=== PATIENT | male | born 1935 | race Caucasian/White ===

== ENCOUNTER 2017-07-11 13:17 | Inpatient (IN) | payer MEDICARE, OTHER ==
[2017-07-11 13:36] LABS: #Basophils 0.1 thou/uL (0.0-0.2); #Eosinphils 0.1 thou/uL (0.0-0.7); #Lymphocytes 1.8 thou/uL (1.20-3.40); #Monocytes 0.6 thou/uL (0.11-0.59); #Neutrophils 3.7 thou/uL (1.40-6.50); %Eosinophils 1.4 % (0.0-10.0); %Lymphocytes 29.3 % (21.0-51.0); %Monocytes 9.4 % (0.0-10.0); %Neutrophils 58.9 % (42.0-75.0); Mean Corpuscular HGB CONC 33.1 g/dL (32.0-36.0); Mean Corpuscular Hemoglobin 31.3 pg (27.0-31.0); Mean Corpuscular Volume 94.8 fl (80.0-94.0); Platelet Count 187 thou/uL (130-400); RBC Distribution Width 12.3 % (11.5-14.5); Red Blood Cell (RBC) Count 5.11 mill/uL (4.70-6.10); White Blood Cell (WBC) Count 6.2 thou/uL (4.8-10.8)
[2017-07-11] MEDS ORDERED: Famotidine/PF 20 mg/2ml Vial ONE (13:38)
[2017-07-11] MEDS ORDERED: methylPREDNISolone Sod Succ/PF 125 MG/2 ML VIAL ONE (13:38)
[2017-07-11] MEDS ORDERED: diphenhydrAMINE 50 MG/ML VIAL ONE (13:38)
[2017-07-11 13:54] LABS: INR-International Normal Ratio 1.1; PTT 31.7 SEC (22.9-36.1)
[2017-07-11 13:55] LABS: CKMB 0.8 ng/mL (0-6.6)
[2017-07-11 14:01] LABS: ALT (SGPT) 15 U/L (8-55); AST (SGOT) 31 U/L (5-34); Albumin 4.4 g/dL (3.4-4.8); Alkaline Phosphatase 83 U/L (40-150); Anion Gap 15 mmol/L (10-20); BUN (Urea Nitrogen) 13 mg/dL (8.4-25.7); Bilirubin, Total 0.7 mg/dL (0.2-1.2); CK (CPK) 45 U/L (30-200); Calc. Creatinine Clearance 0 mL/min (70-130); Calcium 10.1 mg/dL (7.8-10.44); Carbon Dioxide 22 mmol/L (23-31); Chloride 103 mmol/L (98-107); Estimated GFR-MDRD 85; Globulin 3.6 g/dL (2.4-3.5); Glucose 118 mg/dL (83-110); Sodium 135 mmol/L (136-145)
[2017-07-11 14:05] LABS: Troponin I Less than 0.010 ng/mL (< 0.028)
[2017-07-11] MEDS ORDERED: niCARdipine 20MG In NaCl 20 MG/200 ML BAG ONE (14:12)
[2017-07-11] MEDS ORDERED: ISOVUE-370 76%-LOCM 1 ML ONE (14:41)
--- NOTE | 2017-07-11 14:47 | CT ---
CT BRAIN NONCONTRAST: DATE: 07-11-17 TIME 1:32 p.m. HISTORY: 82-year-old male with new onset of altered mental status. Confusion. Dr. Hernandez gave this negative STAT stroke alert protocol report by telephone to Dr. Gonzalez of the Emergenc y Department at 1:36 p.m. on 07-11-17. Code CR FINDINGS: There is no midline shift or any other mass effect. There is no evidence of acute intracranial hemor rhage, large cortical infarct, obstructive hydrocephalus, or extraaxial fluid collection. The calvar ium is intact. There is diffuse parenchymal volume loss. There are low attenuation areas in the whi te matter. These are nonspecific, but in a patient of this age, they are probably chronic ischemic w sheree matter changes due to microvascular atherosclerosis. The visualized paranasal sinuses just super ior to the mid axillary sinus level, and the bilateral tympanomastoid cavities are clear. 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 IMPRESSION: 1) No acute intracranial findings. 2) Involutional changes and chronic ischemic white matter changes. 3) Vertebrobasilar dolichoectasia. laine POS: [facility]
--- NOTE | 2017-07-11 15:19 | CT ---
CT ANGIOGRAM OF THE NECK WITH CONTRAST CT ANGIOGRAM OF THE HEAD WITH CONTRAST CT PERFUSION OF THE HEAD WITH CONTRAST: Date: 07-11-17 History: 82-year-old male with altered mental status. Technique: Fast prep given prior to IV contrast injection because of reported history of allergy to iodina trinh contrast. IV injection of 150 ml of Isovue 370. Arterial bolus chasing technique scan performed from top of aortic arch to vertex of head. Coronal and sagittal 3D MIP reconstruction. Multiple axial scans obtained through the head, excluding the base and vertex, post contrast for perf usion. Multiple perfusion parameters performed. FINDINGS: There is no evidence of high grade stenosis identified involving the bilateral subclavian, bilateral common carotid, or bilateral internal carotid arteries; or the left vertebral artery. However, the or igin of the left common carotid and the origin of the brachiocephalic artery, were excluded from the scan. Right vertebral artery is diminutive, but without evidence of focal short segment acquired gene nosis. Intracranially, the right vertebral artery terminates in PICA. There is ectasia and tortuosity of the intracranial left vertebral artery deeply indenting the left side of the brain stem, both edna s and medulla. Basilar artery is also tortuous and ectatic. No evidence of intracranial aneurysm. No high grade short segment focal acquired stenosis identified. Diminutive A1 segment of left anterior c erebral artery. No occlusion of anterior or posterior artery circulation identified. No definite asymmetry or defect is identified involving the images of the cerebral blood volume, cere bral blood flow, or mean transit time, but the cerebrum superior to the level of the lateral ventricl es was not included. IMPRESSION: 1. No evidence of acute cerebral ischemia or infarction. 2. No evidence of arterial occlusion or high grade, acquired short segment stenosis. 3. Diminutive right vertebral artery which terminates in PICA (posterior-inferior cerebellar artery). 4. Diminutive A1 segment of left anterior cerebral artery. 5. Vertebrobasilar dolichoectasia. POS: [facility]
[2017-07-11] MEDS ORDERED: Ondansetron HCl/PF 4 MG/2 ML Vial IVP PRN ×2 (17:35→17:40)
[2017-07-11] MEDS ORDERED: Ondansetron ODT 4 MG TAB SL PRN (17:35)
[2017-07-11] MEDS ORDERED: Acetaminophen 650 MG Suppository PR PRN (17:40)
[2017-07-11] MEDS ORDERED: Dextrose 50% Abboject 50 ML SYRINGE SLOW IVP PRN (17:40)
[2017-07-11] MEDS ORDERED: Dextrose 5% in Water 1,000 ML IV PRN (17:40)
[2017-07-11] MEDS ORDERED: HumaLOG 300 UNITS/3 ML VIAL SC PRN (17:40)
[2017-07-11] MEDS ORDERED: niCARdipine 20MG in NaCl 200 ML BAG IVPB PRN (17:40)
[2017-07-11] MEDS ORDERED: niCARdipine HCl 25 MG in Sodium Chloride 0.9% 250 ML 240 ML IVPB SCH ×2 (17:45→18:00)
[2017-07-11] MEDS: Sodium Chloride 0.9% 1,000 ML IV SCH (17:52)
--- NOTE | 2017-07-11 21:45 | HP ---
DATE OF ADMISSION: 07/11/2017 TIME OF SERVICE: 1500 PRIMARY CARE PHYSICIAN: Dr. Sunil Worley CHIEF COMPLAINT: Confusion. HISTORY OF PRESENT ILLNESS: The patient is unable to give any history. History is taken from his wi fe and from the chart and from discussion with the emergency room physician. Mr. Loja is an 82-year-old white male with history of tongue and throat cancer, prostate cancer, es ophageal cancer, diabetes and hypertension, who was brought to the emergency department via EMS for c onfusion and difficulty speaking. Per his , he was speaking gibberish and started just prior to admission during the presentation here in the emergency department. Workup revealed blood pressure 211/140, CT of the brain was negative, CT perfusion was negative for e vidence of ischemia. The patient was started on the TPA protocol and we were subsequently called for admit. Per Dr. Gonzalez the emergency room physician, he is not having right-sided weakness and better speech. Nurse reports clear speech with actually an increased NIH score as opposed to presentation. The patient does have some receptive aphasia, unable to follow directions. He is unable to answer qu estions effectively. PAST MEDICAL HISTORY: 1. Throat cancer. 2. Tongue cancer. 3. Prostate cancer. 4. Esophageal cancer in remission for more than 10 years. 5. Diabetes mellitus type 2. 6. Hypertension. 7. Unspecified arrhythmia. PAST SURGICAL HISTORY: Includes: 1. Left knee surgery. 2. Hernia repair x4. 3. Prostatectomy. HOME MEDICATIONS: 1. Vitamin D3 of 2000 units daily. 2. Metformin 500 mg p.o. b.i.d. 3. Rabeprazole 20 mg p.o. b.i.d. 4. Pravastatin 20 mg p.o. at bedtime. 5. Slow-Mag 64 mg daily. ALLERGIES: ATENOLOL, CARDIZEM, DOXAZOSIN, DROPERIDOL, IODINE, LISINOPRIL, SULFA, TETANUS VACCINE AND TOXOID. FAMILY HISTORY: Negative for clotting or bleeding disorder, no immune dysfunction, no premature anthony nary disease, no premature strokes. SOCIAL HISTORY: Negative for habits x3. is at the bedside. He lives at home with family. He has multiple children live in different areas. REVIEW OF SYSTEMS: A 10-point review of systems was attempted, the patient is unable to answer quest ions. Answers yes to everything. PHYSICAL EXAMINATION: VITAL SIGNS: Temperature 98.4, pulse 98, blood pressure on arrival was 211/140 with respiratory rate of 18, and satting 93% on room air. Blood pressure at the time of my visit was 152/91 and satting 9 7% on room air. GENERAL: He is awake. He is alert. He is unable to answer orientation questions. Appears to be in no acute distress. HEENT: Normocephalic, atraumatic. His pupils are equal, round, reactive to light bilaterally. Muco us membranes are moist. No visible lesions. No thrush. No uvula deviation. NECK: Supple with no lymphadenopathy, JVD or thyromegaly. He has normal carotid upstrokes. I do no t appreciate bruits. CHEST: Lungs are clear. He has no wheezes, no rales or rhonchi. He has good air movements. Symmet rical chest excursion. CARDIOVASCULAR: Slightly tachycardic and regular. He has had a 2/6 systolic ejection murmur. There are no holosystolic murmurs and no diastolic murmurs. ABDOMEN: Soft. It is nontender, nondistended. No masses, organomegaly. No rebound, rigidity or gu arding. He has good bowel sounds in all 4 quadrants. EXTREMITIES: No cyanosis, clubbing, no edema. He has got 1+ distal pulses in all four extremities. SKIN: Warm, moist, and well perfused. He has no rashes, no lesions. MUSCULOSKELETAL: Normal to inspection. Large joints were uninflamed. There are no palpable effusio ns. NEUROLOGIC: Cranial nerves II through XII appear to be grossly intact. The patient is unable to fol low instructions due to receptive and expressive aphasia. He is moving all 4 extremities symmetrical ly. LABORATORY DATA: Sodium is 135, potassium 5.0, chloride 103, bicarbonate 22, BUN 13, creatinine 0.86 , and glucose 118. Liver functions within normal limits. CBC showed white count 6.2, hemoglobin 16. 0, hematocrit of 48.4, platelet count is 157,000. CK-MB is normal at 0.8. Troponin I is undetectabl e less than 0.010 and INR was 1.1. RADIOGRAPHIC STUDIES: Brain CT as above. No acute changes, but does have some chronic changes. Hea d and neck perfusion study showed no evidence of acute ischemia. ASSESSMENT AND PLAN: 1. Stroke. The patient has expressive and receptive aphasia as well as some right-sided weakness. I do suspect left middle cerebral artery distribution. CT perfusion did not elucidate this. The pat ient is still receiving TPA. We will admit him in the ICU on the TPA protocol and follow. 2. Hypertension, currently very elevated on presentation. He is on a Cardene drip, which will ricki nue at present. We will wean him off. 3. Diabetes mellitus type 2, the patient will be n.p.o., pending Speech Therapy evaluation. We will get q.6 hours or before meals/at bedtime Accu-Cheks with low dose sliding scale. 4. Arrhythmia, will monitor. 5. History of multiple cancers, currently in remission. The patient will be placed on sequential co mpression devices for prophyhlaxis of DVT given that he is on TPA; we will start him on Pepcid 20 mg b.i.d.
[2017-07-11] MEDS: Famotidine/PF 20 mg/2ml Vial SLOW IVP SCH (21:50)
[2017-07-12] MEDS: Sodium Chloride 0.9% 1,000 ML IV SCH (06:29)
[2017-07-12] MEDS: Famotidine/PF 20 mg/2ml Vial SLOW IVP SCH (08:56)
[2017-07-12] MEDS ORDERED: Prevnar 13-Val Conj/PF 0.5 ML SYRINGE IM ONE (09:00)
[2017-07-12 15:30] LABS: #Lymphocytes 1.2 thou/uL (1.20-3.40); #Monocytes 1.1 thou/uL (0.11-0.59); #Neutrophils 7.7 thou/uL (1.40-6.50); %Basophils 0.4 % (0.0-1.0); %Eosinophils 0.1 % (0.0-10.0); %Lymphocytes 11.6 % (21.0-51.0); %Monocytes 10.5 % (0.0-10.0); %Neutrophils 77.4 % (42.0-75.0); Hemoglobin 14.1 g/dL (14.0-18.0); Mean Corpuscular HGB CONC 33.2 g/dL (32.0-36.0); Mean Corpuscular Hemoglobin 31.4 pg (27.0-31.0); Mean Corpuscular Volume 94.7 fl (80.0-94.0); Mean Platelet Volume 7.5 fL (7.4-10.4); Platelet Count 152 thou/uL (130-400); RBC Distribution Width 12.1 % (11.5-14.5); Red Blood Cell (RBC) Count 4.47 mill/uL (4.70-6.10)
[2017-07-12 15:56] LABS: ALT (SGPT) 13 U/L (8-55); AST (SGOT) 16 U/L (5-34); Albumin 3.8 g/dL (3.4-4.8); Alkaline Phosphatase 63 U/L (40-150); Anion Gap 11 mmol/L (10-20); BUN (Urea Nitrogen) 17 mg/dL (8.4-25.7); Bilirubin, Total 0.6 mg/dL (0.2-1.2); Calc. Creatinine Clearance 56 mL/min (70-130); Calcium 9.5 mg/dL (7.8-10.44); Carbon Dioxide 25 mmol/L (23-31); Cardiac Risk 2.9 (Less than 4.5); Chloride 105 mmol/L (98-107); Cholesterol 135 mg/dl (< 200 Desired); Estimated GFR-MDRD Greater than 90; Globulin 2.2 g/dL (2.4-3.5); Glucose 188 mg/dL (83-110); HDL Cholesterol 47 mg/dL (>60 Neg Risk); LDL Cholesterol, Calculated 72 mg/dL; Potassium 4.3 mmol/L (3.5-5.1); Sodium 137 mmol/L (136-145); Triglycerides 80 mg/dL (Less than 150)
--- NOTE | 2017-07-12 16:31 | PDOC.PN ---
- Subjective Encounter Start Date: 07/12/17 Encounter Start Time: 15:30 - Objective Resuscitation Status: Resuscitation Status FULL:Full Resuscitation Vital Signs & Weight: Vital Signs (12 hours) Temp Pulse Pulse Pulse Resp BP BP 07/12/17 12:00 98.7 F 07/12/17 08:03 84 85 134/85 140/86 07/12/17 08:00 97.8 F 86 23 H 07/12/17 06:46 Pulse Ox Pulse Ox Pulse Ox 07/12/17 12:00 99 07/12/17 08:03 97 94 L 07/12/17 08:00 99 07/12/17 06:46 96 Weight Admit Weight 125 lb 7.088 oz Weight 125 lb 7.088 oz Most Recent Monitor Data Heart Rate from ECG 76 NIBP 154/71 NIBP BP-Mean 137 Respiration from ECG 23 SpO2 98 I&O: 07/11/17 07/12/17 07/13/17 06:59 06:59 06:59 Intake Total 1236 360 Output Total 1000 375 Balance 236 -15 Result Diagrams: 07/12/17 15:23 07/12/17 15:23 Dx/Plan - Plan * .
[2017-07-12 18:13] VITALS: BMI 17.9
[2017-07-12] MEDS: Famotidine 20 MG TAB PO SCH (20:37)
--- NOTE | 2017-07-12 22:18 | CON ---
DATE OF CONSULTATION: 07/12/2017 REFERRING PHYSICIAN: Jay Lynn MD REASON FOR CONSULTATION: Aphasia, status post IV tPA. HISTORY OF PRESENT ILLNESS: Mr. Loja is a pleasant 82-year-old male who has been consult ed for evaluation of aphasia and post IV tPA. History was obtained from the patient's medical chart as the patient is not able to provide any history. Apparently, the patient had presented on yesterda y with a sudden onset of vision changes, followed by dysarthria, aphasia, and confusion. On arrival, his blood pressure was noted to be 211/140. He had a CT of the head done, which was negative. He h ad a CT perfusion scan done, which showed no evidence of ischemia. He had a CT angiogram of the head and neck done, which showed no evidence of intracranial or extracranial vascular abnormality. He wa s given IV tPA as he was in the window for tPA, after which his symptoms quickly resolved. Currently , the patient reports of having no headache, vision changes, numbness, tingling, weakness, dysarthria , or dysphagia. PAST MEDICAL HISTORY: Significant for throat cancer, tongue cancer, prostate cancer, esophageal canc er, hypertension, diabetes, and unspecified arrhythmia. PAST SURGICAL HISTORY: Significant for left knee surgery, hernia repair, and prostatectomy. CURRENT MEDICATIONS: Please review MAR. ALLERGIES: Include ATENOLOL, CARDIZEM, DOXAZOSIN, DROPERIDOL, IODINE, LISINOPRIL, SULFA DRUGS, TETAN US VACCINE AND TOXOID. FAMILY HISTORY: Noncontributory. SOCIAL HISTORY: Denies smoking, alcohol use, or illicit drug use. He is . REVIEW OF SYSTEMS: As mentioned in the HPI, otherwise negative. PHYSICAL EXAMINATION: VITAL SIGNS: Blood pressure of 143/78, pulse of 79, temperature of 99.2, respirations of 11, and O2 sats of 100% on room air. GENERAL: Well-developed, well-nourished male in no apparent distress. RESPIRATORY: Clear to auscultation bilaterally. CARDIOVASCULAR: Regular rate and rhythm. NEUROLOGIC: Mental status: The patient is awake, alert, oriented x3. Speech and language: Fluent speech. Cranial nerves: Pupils are 3 mm and reactive. Visual reeder are intact. Extraocular muscl es are intact. No nystagmus noted. Face is symmetric. Tongue and uvula are midline. Motor exam sh owed normal tone and bulk with 5/5 strength in both upper and lower extremities. Sensory: Sensation is intact and symmetric. Deep tendon reflexes are 2+ reflexes in both upper and lower extremities. Babinski: Plantar responses flexion bilaterally. LABORATORY DATA: Labs are reviewed, which included CBC, coagulation panel, CMP, lipid profile which is significant for glucose of 149; otherwise unremarkable. IMAGING STUDIES: CT head without contrast was reviewed, which showed no acute intracranial abnormali ty. CT angiogram of the head and neck and CT perfusion scan were reviewed, which showed no abnormali ty. IMPRESSION: 1. Aphasia and dysarthria, status post IV tPA, now improved. 2. Malignant hypertension. ASSESSMENT AND PLAN: Mr. Loja is a pleasant 82-year-old male, who presented with acute o nset of dysarthria, aphasia, and confusion. He is now status post IV tPA. Symptoms have improved po st-TPA. His blood pressure was noted to be significantly elevated on arrival. This is the most like ly cause for his symptoms. At this time, I would recommend obtaining MRI brain without contrast and echocardiogram. I would recommend starting him on aspirin 325 mg daily for secondary stroke preventi on. Continue PT, OT, speech therapy. Continue current medical management. Thank you for consultation.
[2017-07-13] MEDS ORDERED: Aspirin 325 mg Enteric Coated Tablet PO SCH (09:00)
[2017-07-13] MEDS ORDERED: metFORMIN XR 500 MG TAB PO SCH (09:00)
[2017-07-13] MEDS ORDERED: Cyanocobalamin (Vitamin B-12) 1,000 MCG TAB PO SCH (09:00)
[2017-07-13] MEDS ORDERED: Magnesium Chloride 64 MG TAB PO SCH (09:00)
[2017-07-13] MEDS: Famotidine 20 MG TAB PO SCH (09:42)
--- NOTE | 2017-07-13 12:17 | MRI ---
MRI BRAIN WITHOUT CONTRAST: Date: 07/13/17 HISTORY: New onset altered mental status, confusion. FINDINGS: Correlation is made with CT brain of 07/11/17. No restricted diffusion is seen. No evidence of infarct, hemorrhage, midline shift, or abnormal extra -axial fluid collections are seen. There are multiple foci of T2 prolongation in the periventricular white matter consistent with chronic small vessel ischemic disease. The ventricular size is appropria te and the basilar cisterns are patent. Vertebrobasilar dolichoectasia is again seen. There is mucosa l disease in the paranasal sinuses. IMPRESSION: 1. No evidence of acute intracranial process. 2. Chronic small vessel ischemic disease. 3. Vertebrobasilar dolichoectasia. POS: [facility]
[2017-07-13] MEDS ORDERED: hydrALAZINE 20 MG/ML VIAL SLOW IVP PRN (12:26)
[2017-07-13] MEDS ORDERED: Amlodipine 10 MG TAB PO SCH (12:30)
[2017-07-13 15:25] VITALS: BP 156/84
[2017-07-13 16:50] VITALS: TEMP 98.7
[2017-07-13] MEDS ORDERED: Atorvastatin Calcium 40 MG TAB PO SCH (21:00)
--- NOTE | 2017-07-13 21:55 | DIS ---
DATE OF ADMISSION: 07/11/2017 DATE OF DISCHARGE: 07/13/2017 DISCHARGE DIAGNOSES: 1. 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 2. Status post TPA administration. 3. Hypertension. 4. Benign prostatic hypertrophy. 5. Hyperlipidemia. 6. Diabetes mellitus type 2, non-insulin dependent. CONSULTATIONS: Neurology, Dr. Svetlana Arevalo. PROCEDURES: None. HISTORY: Mr. Loja is an 82-year-old male who presented to the emergency department early afternoon of 07/11/2017 with acute onset of dysphagia. He is unable to make coherent statements. A CT of the brain in the emergency department was negative, he was in the window and felt to be a good candidate for TPA and so the protocol was initiated. Subsequently, called for admission. HOSPITAL COURSE: The patient was seen and examined by me in the Emergency Department, the patient was neurologically intact except for Wernicke's aphasia. He was placed in the ICU, all anticoagulants were held, antiplatelet drugs were held, and blood pressure was controlled with a Cardene drip initially. Overnight 07/11/2017 to 07/12/2017, the patient's mental status, speech and neurologic status completely back to normal. He underwent a 2D echocardiogram. He was seen by Dr. Arevalo on 07/12/2017 who recommended MRI and echocardiogram. He recommended aspirin. Review of the chart and the medicines with the patient and his family, really does take a migraine remedy daily at nighttime and has 250 mg of aspirin before his symptoms stroke. We will place him on Lipitor 40 instead of his normal Pravachol 20. We will increase his aspirin to 325 mg p.o. q.a.m. of aspirin alone, and he can continue to use his migraine medicine if wanted. Overnight 07/12/2017 to 07/13/2017, he remained stable. MRI showed no acute infarct, his echocardiogram showed EF 50%-55% with some mild valvular disease, but nothing significant, and blood pressure remained elevated. He was placed on Norvasc 10 mg daily with good control of his blood pressure. He was stable for discharge with outpatient followup. PHYSICAL EXAMINATION: The patient was seen and examined on the day of discharge. Discharge plan and disposition was discussed with the patient, his , and has tolerated the base at the bedside. DISCHARGE MEDICATIONS: 1. Slow-Mag 64 mg p.o. b.i.d. 2. Cholecalciferol 2000 units daily with cyanocobalamin 225 mcg p.o. daily. 3. Metformin 500 mg p.o. b.i.d. 4. Aciphex 20 mg p.o. b.i.d. 5. Lipitor 40 mg p.o. at bedtime. 6. Aspirin 325 mg daily. 7. Norvasc 10 mg daily. FOLLOWUP APPOINTMENTS: 1. Primary care physician, Dr. Sunil Worley within a week. 2. Dr. Svetlana Arevalo with Neurology in 2-3 weeks. DISCHARGE ACTIVITY: As tolerated. DISCHARGE DIET: Heart healthy diabetic diet recommended. DISCHARGE CONDITION: Stable. DISPOSITION: Will be discharged home via private vehicle. EDANN
== END 2017-07-13 17:01 | disposition home or self-care (01) | DRG 62 ==
LOC: ERS 13:17 → ERHOLD 15:07 → CCU 17:13
PROVIDERS: ADMIT Internal Medicine Infectious Disease; ATTEND Internal Medicine Infectious Disease
DX: I63.9 Cerebral infarction, unspecified (principal); G81.91 Hemiplegia, unspecified affecting right dominant side; E11.9 Type 2 diabetes mellitus without complications; R47.01 Aphasia; Z92.82 Status post administration of tPA (rtPA) in a different facility within the last 24 hours prior to admission to current facility; I10 Essential (primary) hypertension; H53.47 Heteronymous bilateral field defects; R29.810 Facial weakness; R47.1 Dysarthria and anarthria; Z85.01 Personal history of malignant neoplasm of esophagus; Z85.46 Personal history of malignant neoplasm of prostate; Z85.810 Personal history of malignant neoplasm of tongue; N40.0 Benign prostatic hyperplasia without lower urinary tract symptoms
CPT/HCPCS: 0042T; 36415; 36416; 70450; 70496; 70498; 70551; 80053; 80061; 82550; 82553; 84484; 85025; 85610; 85730; 93005; 93306; 96365; 96366; 96375; A4216; G8978-GP-CN; G8979-GP-CJ; G8987-GO-CI; G8988-GO-CI; G8989-GO-CI; G8996-GN-CI; G8997-GN-CH; J1200; J2405; J2930; J2997; J7050; S0028

== ENCOUNTER 2017-08-27 14:00 | Outpatient (CLI) | payer MEDICARE, OTHER | END 2017-08-27 14:01 | disposition home or self-care (01) | LOC: BICULT 14:00 | PROVIDERS: ATTEND Family Medicine | DX: E07.9 Disorder of thyroid, unspecified (principal) | CPT/HCPCS: 76536 ==

== ENCOUNTER 2017-09-15 11:00 | Day surgery (SDC) | payer MEDICARE, OTHER ==
[2017-09-14 10:43] VITALS: BMI 18.3
--- NOTE | 2017-09-15 14:39 | OP ---
PREOPERATIVE DIAGNOSIS: Epigastric pain. PROCEDURE: After informed consent was obtained, patient was placed in the left lateral decubitus pos ition. Anesthesia was administered per the Anesthesia Department. Forward-viewing endoscope was ins erted into the esophagus under direct visualization with ease and passed to the second portion of the duodenum with ease. Second portion of the duodenum and duodenal bulb were normal. The pylorus, ant rum, body, fundus, and cardia were normal except for erythema in the proximal stomach. Biopsies were taken. The esophagus was normal throughout. A 54-Kiswahili Owen dilator was passed with moderate r esistance. Reinsertion of the endoscope showed post-dilatation changes at the upper esophagus at ameya roximately 20 cm. ASSESSMENT: 1. Esophageal stricture at 20 cm -- status post Owen dilatation. 2. Gastric body nonerosive gastritis -- status post biopsy. 3. Otherwise normal esophagogastroduodenoscopy. RECOMMENDATIONS: 1. Consider switch from Aciphex to omeprazole. 2. Follow up with me in 1 month's time.
[2017-09-15] MEDS ORDERED: Lidocaine 1% PF 5 ML VIAL ONE (15:01)
[2017-09-15] MEDS ORDERED: PROPOFOL 200 MG/20 ML VIAL ONE (15:01)
== END 2017-09-15 13:50 | disposition home or self-care (01) ==
LOC: SDC 11:00
PROVIDERS: ATTEND Internal Medicine Gastroenterology
PROC: 0DB68ZX Excision of Stomach, Via Natural or Artificial Opening Endoscopic, Diagnostic (ICD-10-PCS; principal; 2017-09-15)
PROC: 0D758ZZ Dilation of Esophagus, Via Natural or Artificial Opening Endoscopic (ICD-10-PCS; 2017-09-15)
DX: K22.2 Esophageal obstruction (principal); K29.70 Gastritis, unspecified, without bleeding; G47.33 Obstructive sleep apnea (adult) (pediatric); I10 Essential (primary) hypertension; E11.9 Type 2 diabetes mellitus without complications; K21.9 Gastro-esophageal reflux disease without esophagitis; K59.00 Constipation, unspecified; M19.90 Unspecified osteoarthritis, unspecified site; Z87.891 Personal history of nicotine dependence; Z79.82 Long term (current) use of aspirin; Z79.84 Long term (current) use of oral hypoglycemic drugs; Z79.899 Other long term (current) drug therapy; Z88.2 Allergy status to sulfonamides; Z88.6 Allergy status to analgesic agent; Z88.8 Allergy status to other drugs, medicaments and biological substances; Z91.041 Radiographic dye allergy status
CPT/HCPCS: 88305; 88312; J2001; J2704

== ENCOUNTER 2017-09-16 10:15 | Day surgery (SDC) | payer MEDICARE, OTHER ==
[2017-09-15 12:14] VITALS: BMI 18.2
[2017-09-16] MEDS ORDERED: Sodium Bicarbonate 2.5 MEQ/5 ML VIAL ONE (11:15)
[2017-09-16] MEDS ORDERED: Lidocaine 1% MPF 2 ML VIAL ONE (11:15)
[2017-09-16 11:43] VITALS: BP 133/84; TEMP 97.9
--- NOTE | 2017-09-16 13:00 | ULT ---
ULTRASOUND GUIDED FNA OF THE RIGHT THYROID NODULE: INDICATION: History of throat irradiation and family history of thyroid malignancy. COMPARISON: Prior thyroid ultrasound dated 08/27/17 from [facility] [place]. TECHNIQUE: Informed consent was obtained. Timeout was performed. Preprocedural ultrasound redemonstrated the s uspicious nodule within the inferior pole of the right thyroid gland. A site overlying this region w as prepped and draped in the usual sterile fashion. Buffered 1% Lidocaine was administered to the ov erlying subcutaneous tissues. Under ultrasound guidance, 4 separate FNAs were obtained of the lesion . Postprocedure images demonstrate no significant intraparenchymal or periparenchymal hematoma. IMPRESSION: Successful ultrasound-guided fine needle aspirate of a right inferior pole thyroid nodule. POS: [facility]
== END 2017-09-16 11:55 | disposition home or self-care (01) ==
LOC: ULT 10:15
PROVIDERS: ATTEND Internal Medicine Endocrinology, Diabetes & Metabolism
PROC: 0GBH3ZX Excision of Right Thyroid Gland Lobe, Percutaneous Approach, Diagnostic (ICD-10-PCS; principal; 2017-09-16)
DX: E04.1 Nontoxic single thyroid nodule (principal); Z91.041 Radiographic dye allergy status; Z92.3 Personal history of irradiation; Z80.8 Family history of malignant neoplasm of other organs or systems
CPT/HCPCS: 10022; 76942; 88173; 88305

== ENCOUNTER 2021-10-03 10:12 | Outpatient (CLI) | payer MEDICARE, OTHER | END 2021-10-03 10:13 | disposition home or self-care (01) | LOC: SCSRAD 10:12 | PROVIDERS: ATTEND Family Medicine | DX: M25.552 Pain in left hip (principal); M16.12 Unilateral primary osteoarthritis, left hip ==

== ENCOUNTER 2022-07-20 11:23 | Inpatient (IN) | payer MEDICARE, OTHER ==
[2022-07-20] MEDS ORDERED: niCARdipine 25 MG/10 ML SDV ONE ×2 (11:37→13:16)
[2022-07-20] MEDS ORDERED: niCARdipine 25 MG in Sodium Chloride 0.9% 250 ML 250 ML IVPB PRN (13:00)
[2022-07-20] MEDS ORDERED: Mag-Al 1200 mg/1200 mg/30 ML UDCUP PO PRN (13:00)
[2022-07-20] MEDS ORDERED: Diazepam 5 MG TAB PO PRN (14:13)
[2022-07-20 16:43] LABS: #Eosinphils 0.1 thou/uL (0.0-0.7); #Lymphocytes 1.4 thou/uL (1.20-3.40); #Monocytes 0.8 thou/uL (0.11-0.59); #Neutrophils 8.1 thou/uL (1.40-6.50); %Basophils 0.2 % (0.0-1.0); %Eosinophils 1.2 % (0.0-10.0); %Lymphocytes 13.7 % (21.0-51.0); %Monocytes 7.6 % (0.0-10.0); %Neutrophils 77.4 % (42.0-75.0); Hemoglobin 16.2 g/dL (14.0-18.0); Mean Corpuscular HGB CONC 32.9 g/dL (32.0-36.0); Mean Corpuscular Hemoglobin 32.5 pg (27.0-31.0); Mean Corpuscular Volume 98.9 fl (78.0-98.0); Mean Platelet Volume 7.8 fL (7.4-10.4); Platelet Count 159 10x3/uL (130-400); RBC Distribution Width 12.1 % (11.5-14.5); Red Blood Cell (RBC) Count 4.97 mill/uL (4.70-6.10); White Blood Cell (WBC) Count 10.5 10x3/uL (4.8-10.8)
[2022-07-20 16:59] LABS: INR-International Normal Ratio 1.1; PTT 32.9 sec (22.9-36.1); Prothrombin Time 14.8 sec (12.0-14.7)
[2022-07-20 17:10] LABS: ALT (SGPT) 11 U/L (8-55); AST (SGOT) 19 U/L (5-34); Albumin 3.9 g/dL (3.4-4.8); Alkaline Phosphatase 127 U/L (40-110); Anion Gap 16 mmol/L (10-20); BUN (Urea Nitrogen) 13 mg/dL (8.4-25.7); Bilirubin, Total 0.9 mg/dL (0.2-1.2); Calc. Creatinine Clearance 0 mL/min (70-130); Calcium 9.3 mg/dL (7.8-10.44); Carbon Dioxide 24 mmol/L (23-31); Chloride 105 mmol/L (98-107); Estimated GFR 87; Globulin 2.2 g/dL (2.4-3.5); Glucose 145 mg/dL (83-110); Potassium 3.6 mmol/L (3.5-5.1); Protein, Total 6.1 g/dL (5.8-8.1); Sodium 141 mmol/L (136-145)
[2022-07-20 18:35] LABS: SARS-CoV-2 NAA Rapid Test Not Detected (NotDetected)
[2022-07-20] MEDS: Famotidine/PF 20 mg/2ml Vial SLOW IVP SCH (20:44)
[2022-07-20] MEDS ORDERED: Metoprolol Tartrate 5 MG/5 ML VIAL IVP SCH (20:45)
[2022-07-20] MEDS ORDERED: Potassium Chloride 20 MEQ in Premix Bag 1 BAG IVPB SCH (21:00)
[2022-07-20] MEDS: Diltiazem 125 MG in Sodium Chloride 0.9% 100 ML IVPB SCH (21:47)
[2022-07-20 22:49] LABS: Magnesium 1.7 mg/dL (1.6-2.6)
[2022-07-21] MEDS ORDERED: Magnesium 2 GM/50 ML(in water) 2 GM in Premix Bag 1 BAG IVPB SCH (04:00)
[2022-07-21 07:10] LABS: Anion Gap 17 mmol/L (10-20); BUN (Urea Nitrogen) 17 mg/dL (8.4-25.7); Calc. Creatinine Clearance 53 mL/min (70-130); Carbon Dioxide 20 mmol/L (23-31); Cardiac Risk 2.6 (Less than 4.5); Chloride 104 mmol/L (98-107); Cholesterol 125 mg/dl (< 200 Desired); Estimated GFR 85; Glucose 157 mg/dL (83-110); HDL Cholesterol 48 mg/dL (>60 Neg Risk); LDL Cholesterol, Calculated 67 mg/dL; Magnesium 2.5 mg/dL (1.6-2.6); Potassium 4.3 mmol/L (3.5-5.1); Sodium 137 mmol/L (136-145); Triglycerides 49 mg/dL (Less than 150)
[2022-07-21 07:22] LABS: Hemoglobin 17.1 g/dL (14.0-18.0); Mean Corpuscular Hemoglobin 32.9 pg (27.0-31.0); White Blood Cell (WBC) Count 16.9 10x3/uL (4.8-10.8)
[2022-07-21 07:47] LABS: Band 35 % (5-11); Lymphocytes 5 % (21-51); MDiff Complete? YES; Mean Corpuscular HGB CONC 32.7 g/dL (32.0-36.0); Mean Platelet Volume 8.4 fL (7.4-10.4); Neutrophil 53 % (42-75); Platelet Count 112 10x3/uL (130-400); Platelet Morphology Comment Appears Decreased; Polychromasia SLIGHT = 2-3 cells (100X) (0-2/hpf); RBC Distribution Width 12.3 % (11.5-14.5); Reactive Lymphocytes 7 % (0-10); Vacuoles SLIGHT
[2022-07-21] MEDS: Famotidine/PF 20 mg/2ml Vial SLOW IVP SCH ×2 (10:44→21:05)
[2022-07-21] MEDS: Amlodipine 5 MG TAB PO SCH ×2 (10:59→13:14)
[2022-07-21] MEDS: Zinc Sulfate 220 MG CAP PO SCH ×2 (10:59→13:15)
[2022-07-21] MEDS: Atorvastatin Calcium 40 MG TAB PO SCH ×2 (10:59→13:14)
[2022-07-21] MEDS: Diltiazem 125 MG in Sodium Chloride 0.9% 100 ML IVPB SCH (13:13)
[2022-07-21] MEDS: Metoprolol Tartrate 25 MG TAB PO SCH (21:05)
[2022-07-21] MEDS ORDERED: Diazepam 5 MG TAB PO PRN (22:25)
[2022-07-21] MEDS: Melatonin 3 MG TAB PO PRN (22:39)
[2022-07-22 06:21] LABS: #Basophils 0.1 thou/uL (0.0-0.2); #Lymphocytes 1.6 thou/uL (1.20-3.40); #Neutrophils 11.4 thou/uL (1.40-6.50); %Basophils 0.4 % (0.0-1.0); %Eosinophils 0.2 % (0.0-10.0); %Lymphocytes 11.1 % (21.0-51.0); %Monocytes 6.8 % (0.0-10.0); %Neutrophils 81.6 % (42.0-75.0); Hemoglobin 14.7 g/dL (14.0-18.0); Mean Corpuscular HGB CONC 32.8 g/dL (32.0-36.0); Mean Corpuscular Hemoglobin 32.5 pg (27.0-31.0); Mean Platelet Volume 8.4 fL (7.4-10.4); Platelet Count 131 10x3/uL (130-400); RBC Distribution Width 12.5 % (11.5-14.5); Red Blood Cell (RBC) Count 4.51 mill/uL (4.70-6.10)
[2022-07-22 06:45] LABS: Anion Gap 11 mmol/L (10-20); BUN (Urea Nitrogen) 23 mg/dL (8.4-25.7); Calc. Creatinine Clearance 51 mL/min (70-130); Calcium 9.4 mg/dL (7.8-10.44); Carbon Dioxide 29 mmol/L (23-31); Chloride 103 mmol/L (98-107); Estimated GFR 84; Glucose 120 mg/dL (83-110); Magnesium 2.3 mg/dL (1.6-2.6); Sodium 139 mmol/L (136-145)
[2022-07-22] MEDS: Labetalol HCl 100 MG/20 ML VIAL SLOW IVP PRN ×2 (08:16→10:42)
[2022-07-22] MEDS: Zinc Sulfate 220 MG CAP PO SCH (08:27)
[2022-07-22] MEDS: Metoprolol Tartrate 25 MG TAB PO SCH (08:27)
[2022-07-22] MEDS: Atorvastatin Calcium 40 MG TAB PO SCH (08:27)
[2022-07-22] MEDS ORDERED: Amlodipine 10 MG TAB PO SCH (09:00)
[2022-07-22] MEDS: Famotidine/PF 20 mg/2ml Vial SLOW IVP SCH ×2 (10:29→22:38)
[2022-07-22] MEDS ORDERED: Bisacodyl 5 MG TAB PO PRN (12:42)
[2022-07-22] MEDS ORDERED: Senokot 8.6 MG TAB PO PRN (12:42)
[2022-07-22] MEDS ORDERED: cefTRIAXone\\ROCEPHIN 2 GM in Sodium Chloride 0.9% 100 ML IVPB SCH (17:15)
[2022-07-22] MEDS: Metoprolol Tartrate 25 MG TAB PER TUBE SCH (22:38)
[2022-07-23] MEDS: hydrALAZINE 20 MG/ML VIAL SLOW IVP PRN (01:31)
[2022-07-23 06:37] LABS: Magnesium 2.1 mg/dL (1.6-2.6)
[2022-07-23] MEDS: Amlodipine 10 MG TAB PER TUBE SCH (10:08)
[2022-07-23] MEDS: Famotidine/PF 20 mg/2ml Vial SLOW IVP SCH ×2 (10:08→22:35)
[2022-07-23] MEDS: Metoprolol Tartrate 25 MG TAB PER TUBE SCH ×2 (10:09→22:36)
[2022-07-23] MEDS: Atorvastatin Calcium 40 MG TAB PO SCH (10:09)
[2022-07-23] MEDS: Zinc Sulfate 220 MG CAP PO SCH (10:17)
[2022-07-23] MEDS ORDERED: Dextrose 5% in Water 1,000 ML IV PRN (12:08)
[2022-07-23] MEDS ORDERED: Dextrose 50% Abboject 50 ML SYRINGE SLOW IVP PRN (12:08)
[2022-07-23] MEDS: cefTRIAXone\\ROCEPHIN 1 GM in Sodium Chloride 0.9% 100 ML IVPB SCH (17:22)
[2022-07-23] MEDS: HumaLOG 300 UNITS/3 ML VIAL SC PRN (18:23)
[2022-07-23] MEDS ORDERED: Baclofen 10 MG TAB PO SCH (21:15)
[2022-07-23] MEDS ORDERED: FLU VACC QS2022-23(65YR UP)/PF 240 MCG/0.7 ML SYRINGE IM ONE (21:45)
[2022-07-23] MEDS: VYZULTA 0.024% EA EYE SCH (23:08)
[2022-07-24 05:40] LABS: #Monocytes 0.6 thou/uL (0.11-0.59); #Neutrophils 7.1 thou/uL (1.40-6.50); %Basophils 0.1 % (0.0-1.0); %Eosinophils 0.1 % (0.0-10.0); %Lymphocytes 11.8 % (21.0-51.0); %Monocytes 7.1 % (0.0-10.0); %Neutrophils 80.8 % (42.0-75.0); Hemoglobin 14.8 g/dL (14.0-18.0); Mean Corpuscular HGB CONC 33.2 g/dL (32.0-36.0); Mean Corpuscular Hemoglobin 32.8 pg (27.0-31.0); Mean Corpuscular Volume 98.7 fl (78.0-98.0); Mean Platelet Volume 8.1 fL (7.4-10.4); Platelet Count 132 10x3/uL (130-400); RBC Distribution Width 12.3 % (11.5-14.5); White Blood Cell (WBC) Count 8.7 10x3/uL (4.8-10.8)
[2022-07-24 05:49] LABS: Hemoglobin A1c 6.1 % (4.0-6.0)
[2022-07-24 06:05] LABS: Anion Gap 10 mmol/L (10-20); BUN (Urea Nitrogen) 24 mg/dL (8.4-25.7); Calc. Creatinine Clearance 60 mL/min (70-130); Calcium 9.2 mg/dL (7.8-10.44); Carbon Dioxide 28 mmol/L (23-31); Chloride 108 mmol/L (98-107); Estimated GFR 88; Glucose 161 mg/dL (83-110); Magnesium 2.1 mg/dL (1.6-2.6); Potassium 3.4 mmol/L (3.5-5.1); Sodium 143 mmol/L (136-145)
[2022-07-24] MEDS: HumaLOG 300 UNITS/3 ML VIAL SC PRN ×2 (06:34→13:56)
[2022-07-24] MEDS: Famotidine/PF 20 mg/2ml Vial SLOW IVP SCH ×2 (09:18→20:47)
[2022-07-24] MEDS: Zinc Sulfate 220 MG CAP PO SCH (09:18)
[2022-07-24] MEDS: Amlodipine 10 MG TAB PER TUBE SCH (09:19)
[2022-07-24] MEDS: Atorvastatin Calcium 40 MG TAB PO SCH (09:19)
[2022-07-24] MEDS: Metoprolol Tartrate 25 MG TAB PER TUBE SCH (09:19)
[2022-07-24] MEDS: Potassium Chloride 20 MEQ in Premix Bag 1 BAG IVPB SCH ×2 (11:01→13:37)
[2022-07-24] MEDS: cefTRIAXone\\ROCEPHIN 1 GM in Sodium Chloride 0.9% 100 ML IVPB SCH (18:30)
[2022-07-24] MEDS: VYZULTA 0.024% EA EYE SCH (20:47)
[2022-07-24] MEDS ORDERED: Metoprolol Tartrate 50 MG TAB PO SCH (21:00)
[2022-07-25] MEDS: Labetalol HCl 100 MG/20 ML VIAL SLOW IVP PRN (00:37)
[2022-07-25] MEDS: hydrALAZINE 20 MG/ML VIAL SLOW IVP PRN ×2 (00:41→04:24)
[2022-07-25 06:08] LABS: Anion Gap 11 mmol/L (10-20); BUN (Urea Nitrogen) 22 mg/dL (8.4-25.7); Calc. Creatinine Clearance 60 mL/min (70-130); Calcium 9.5 mg/dL (7.8-10.44); Carbon Dioxide 27 mmol/L (23-31); Chloride 108 mmol/L (98-107); Estimated GFR 88; Glucose 215 mg/dL (83-110); Potassium 3.7 mmol/L (3.5-5.1); Sodium 142 mmol/L (136-145)
[2022-07-25 06:11] LABS: Band 25 % (5-11); Eosinophils 1 % (0-10); Hemoglobin 15.4 g/dL (14.0-18.0); Lymphocytes 3 % (21-51); MDiff Complete? YES; Mean Corpuscular HGB CONC 32.8 g/dL (32.0-36.0); Mean Corpuscular Hemoglobin 32.4 pg (27.0-31.0); Mean Corpuscular Volume 98.8 fl (78.0-98.0); Mean Platelet Volume 8.2 fL (7.4-10.4); Monocytes 5 % (0-10); Neutrophil 66 % (42-75); Platelet Count 138 10x3/uL (130-400); Platelet Morphology Comment Appears Adequate; RBC Distribution Width 12.4 % (11.5-14.5); RBC Morphology Normal; Red Blood Cell (RBC) Count 4.76 mill/uL (4.70-6.10); White Blood Cell (WBC) Count 11.3 10x3/uL (4.8-10.8)
[2022-07-25] MEDS: HumaLOG 300 UNITS/3 ML VIAL SC PRN ×3 (07:30→18:09)
[2022-07-25] MEDS: Famotidine/PF 20 mg/2ml Vial SLOW IVP SCH ×2 (10:29→20:57)
[2022-07-25] MEDS: Zinc Sulfate 220 MG CAP PO SCH (10:29)
[2022-07-25] MEDS: Atorvastatin Calcium 40 MG TAB PO SCH (10:30)
[2022-07-25] MEDS: Amlodipine 10 MG TAB PER TUBE SCH (10:30)
[2022-07-25] MEDS: Metoprolol Tartrate 50 MG TAB PO SCH ×2 (10:30→20:57)
[2022-07-25] MEDS: Lisinopril 10 MG TAB PER TUBE SCH ×2 (10:30→20:57)
[2022-07-25] MEDS ORDERED: Potassium Chloride 20 MEQ in Premix Bag 1 BAG IVPB SCH (12:30)
[2022-07-25] MEDS: cefTRIAXone\\ROCEPHIN 1 GM in Sodium Chloride 0.9% 100 ML IVPB SCH (17:35)
[2022-07-25] MEDS: VYZULTA 0.024% EA EYE SCH (20:57)
[2022-07-25] MEDS ORDERED: Polyethylene Glycol 3350 17 GM Packet PO SCH (21:00)
[2022-07-26] MEDS: hydrALAZINE 20 MG/ML VIAL SLOW IVP PRN (04:24)
[2022-07-26] MEDS: HumaLOG 300 UNITS/3 ML VIAL SC PRN ×2 (05:56→13:00)
[2022-07-26 05:59] LABS: Anion Gap 12 mmol/L (10-20); BUN (Urea Nitrogen) 23 mg/dL (8.4-25.7); Calc. Creatinine Clearance 62 mL/min (70-130); Calcium 9.8 mg/dL (7.8-10.44); Carbon Dioxide 28 mmol/L (23-31); Chloride 108 mmol/L (98-107); Estimated GFR 89; Glucose 198 mg/dL (83-110); Magnesium 2.1 mg/dL (1.6-2.6); Sodium 144 mmol/L (136-145)
[2022-07-26 06:05] LABS: Band 1 % (5-11); Eosinophils 3 % (0-10); Hemoglobin 15.6 g/dL (14.0-18.0); Lymphocytes 12 % (21-51); MDiff Complete? YES; Macrocytosis MODERATE=16-30 cells (100X) (0-5/hpf); Mean Corpuscular HGB CONC 32.5 g/dL (32.0-36.0); Mean Corpuscular Hemoglobin 32.5 pg (27.0-31.0); Mean Platelet Volume 7.9 fL (7.4-10.4); Metamyelocyte 1 % (0-0); Monocytes 10 % (0-10); Neutrophil 73 % (42-75); Ovalocytes SLIGHT = 2-5 cells (100X) (0-1/hpf); Platelet Count 161 10x3/uL (130-400); Platelet Morphology Comment Appears Adequate; RBC Distribution Width 12.4 % (11.5-14.5); Red Blood Cell (RBC) Count 4.81 mill/uL (4.70-6.10); White Blood Cell (WBC) Count 12.6 10x3/uL (4.8-10.8)
[2022-07-26] MEDS: Famotidine/PF 20 mg/2ml Vial SLOW IVP SCH ×2 (09:59→21:18)
[2022-07-26] MEDS: Atorvastatin Calcium 40 MG TAB PO SCH (09:59)
[2022-07-26] MEDS: Lisinopril 10 MG TAB PER TUBE SCH (09:59)
[2022-07-26] MEDS: Polyethylene Glycol 3350 17 GM Packet PO SCH (09:59)
[2022-07-26] MEDS: Insulin Glargine 30 UNITS/0.3 ML VIAL SC SCH (09:59)
[2022-07-26] MEDS: Metoprolol Tartrate 50 MG TAB PO SCH ×2 (09:59→21:16)
[2022-07-26] MEDS: Amlodipine 10 MG TAB PER TUBE SCH (10:00)
[2022-07-26] MEDS: Zinc Sulfate 220 MG CAP PO SCH (10:00)
[2022-07-26] MEDS ORDERED: Lisinopril 10 MG TAB PER TUBE SCH (14:45)
[2022-07-26] MEDS: cefTRIAXone\\ROCEPHIN 1 GM in Sodium Chloride 0.9% 100 ML IVPB SCH (16:59)
[2022-07-26] MEDS: Melatonin 3 MG TAB PO PRN (21:15)
[2022-07-26] MEDS: Acetaminophen 325 MG TAB PO PRN (21:17)
[2022-07-26] MEDS: VYZULTA 0.024% EA EYE SCH (21:23)
[2022-07-27] MEDS: hydrALAZINE 20 MG/ML VIAL SLOW IVP PRN ×3 (00:21→22:08)
[2022-07-27] MEDS: Zinc Sulfate 220 MG CAP PO SCH (08:15)
[2022-07-27] MEDS: Atorvastatin Calcium 40 MG TAB PO SCH (08:15)
[2022-07-27] MEDS: Polyethylene Glycol 3350 17 GM Packet PO SCH (08:15)
[2022-07-27] MEDS: Metoprolol Tartrate 50 MG TAB PO SCH ×2 (08:15→21:54)
[2022-07-27] MEDS: Lisinopril 20 MG TAB PO SCH ×2 (08:15→21:55)
[2022-07-27] MEDS: Insulin Glargine 30 UNITS/0.3 ML VIAL SC SCH (08:15)
[2022-07-27] MEDS: Famotidine/PF 20 mg/2ml Vial SLOW IVP SCH (08:15)
[2022-07-27] MEDS: Amlodipine 10 MG TAB PER TUBE SCH (08:15)
[2022-07-27] MEDS ORDERED: Sodium Chloride 0.9% 100 ML ONE (09:54)
[2022-07-27] MEDS ORDERED: CEFAZOLIN 2 GM VIAL ONE (09:54)
[2022-07-27] MEDS ORDERED: PROPOFOL 200 MG/20 ML VIAL ONE (10:00)
[2022-07-27] MEDS ORDERED: Lidocaine 1% PF 5 ML VIAL ONE (10:00)
[2022-07-27] MEDS: Acetaminophen 325 MG TAB PO PRN (21:55)
[2022-07-27] MEDS: Melatonin 3 MG TAB PO PRN (21:55)
[2022-07-27] MEDS: VYZULTA 0.024% EA EYE SCH (21:59)
[2022-07-28 05:58] LABS: #Eosinphils 0.1 thou/uL (0.0-0.7); #Lymphocytes 1.4 thou/uL (1.20-3.40); #Monocytes 0.9 thou/uL (0.11-0.59); #Neutrophils 5.8 thou/uL (1.40-6.50); %Basophils 0.2 % (0.0-1.0); %Eosinophils 1.2 % (0.0-10.0); %Neutrophils 70.7 % (42.0-75.0); Hemoglobin 14.1 g/dL (14.0-18.0); Mean Corpuscular HGB CONC 32.8 g/dL (32.0-36.0); Mean Corpuscular Hemoglobin 32.8 pg (27.0-31.0); Mean Corpuscular Volume 99.9 fl (78.0-98.0); Mean Platelet Volume 8.2 fL (7.4-10.4); Platelet Count 192 10x3/uL (130-400); RBC Distribution Width 12.3 % (11.5-14.5); Red Blood Cell (RBC) Count 4.31 mill/uL (4.70-6.10); White Blood Cell (WBC) Count 8.3 10x3/uL (4.8-10.8)
[2022-07-28] MEDS: HumaLOG 300 UNITS/3 ML VIAL SC PRN (06:23)
[2022-07-28 06:27] LABS: Anion Gap 13 mmol/L (10-20); BUN (Urea Nitrogen) 25 mg/dL (8.4-25.7); Calc. Creatinine Clearance 62 mL/min (70-130); Calcium 9.2 mg/dL (7.8-10.44); Carbon Dioxide 27 mmol/L (23-31); Chloride 106 mmol/L (98-107); Estimated GFR 89; Glucose 175 mg/dL (83-110); Magnesium 2.1 mg/dL (1.6-2.6); Sodium 142 mmol/L (136-145)
[2022-07-28] MEDS: Polyethylene Glycol 3350 17 GM Packet PO SCH (10:57)
[2022-07-28] MEDS: Insulin Glargine 30 UNITS/0.3 ML VIAL SC SCH (10:57)
[2022-07-28] MEDS: Zinc Sulfate 220 MG CAP PO SCH (10:57)
[2022-07-28] MEDS: Lansoprazole 15 MG/5 ML (BATCHED)UDCUP PER TUBE SCH (10:57)
[2022-07-28] MEDS: Metoprolol Tartrate 50 MG TAB PO SCH ×2 (10:58→21:03)
[2022-07-28] MEDS: Amlodipine 10 MG TAB PER TUBE SCH (10:58)
[2022-07-28] MEDS: Lisinopril 20 MG TAB PO SCH ×2 (10:59→21:02)
[2022-07-28] MEDS: Atorvastatin Calcium 40 MG TAB PO SCH (10:59)
[2022-07-28] MEDS: VYZULTA 0.024% EA EYE SCH (21:02)
[2022-07-28] MEDS: Melatonin 3 MG TAB PO PRN (21:03)
[2022-07-29] MEDS: HumaLOG 300 UNITS/3 ML VIAL SC PRN ×4 (06:39→23:35)
[2022-07-29] MEDS: Zinc Sulfate 220 MG CAP PO SCH (08:32)
[2022-07-29] MEDS: Lansoprazole 15 MG/5 ML (BATCHED)UDCUP PER TUBE SCH (08:32)
[2022-07-29] MEDS: Metoprolol Tartrate 50 MG TAB PO SCH ×2 (08:32→20:29)
[2022-07-29] MEDS: Insulin Glargine 30 UNITS/0.3 ML VIAL SC SCH (08:32)
[2022-07-29] MEDS: Amlodipine 10 MG TAB PER TUBE SCH (08:33)
[2022-07-29] MEDS: Polyethylene Glycol 3350 17 GM Packet PO SCH (08:33)
[2022-07-29] MEDS: Lisinopril 20 MG TAB PO SCH ×2 (08:33→20:29)
[2022-07-29] MEDS: Atorvastatin Calcium 40 MG TAB PO SCH (08:33)
[2022-07-29] MEDS: Scopolamine 1.5 mg/72 hour Patch TD SCH (10:43)
[2022-07-29] MEDS: Acetaminophen 325 MG TAB PO PRN (12:58)
[2022-07-29] MEDS: VYZULTA 0.024% EA EYE SCH (23:29)
[2022-07-30] MEDS: Polyethylene Glycol 3350 17 GM Packet PO SCH (08:39)
[2022-07-30] MEDS: Lansoprazole 15 MG/5 ML (BATCHED)UDCUP PER TUBE SCH (08:39)
[2022-07-30] MEDS: Metoprolol Tartrate 50 MG TAB PO SCH ×2 (08:39→21:45)
[2022-07-30] MEDS: Atorvastatin Calcium 40 MG TAB PO SCH (08:39)
[2022-07-30] MEDS: Amlodipine 10 MG TAB PER TUBE SCH (08:40)
[2022-07-30] MEDS: Zinc Sulfate 220 MG CAP PO SCH (08:40)
[2022-07-30] MEDS: Acetaminophen 325 MG TAB PO PRN (08:40)
[2022-07-30] MEDS: Insulin Glargine 30 UNITS/0.3 ML VIAL SC SCH (08:41)
[2022-07-30] MEDS: Lisinopril 20 MG TAB PO SCH ×2 (08:41→21:45)
[2022-07-30] MEDS ORDERED: cefTRIAXone\\ROCEPHIN 1 GM in Sodium Chloride 0.9% 100 ML IVPB SCH (10:00)
[2022-07-30 10:14] LABS: Hemoglobin 13.9 g/dL (14.0-18.0); Mean Corpuscular HGB CONC 32.2 g/dL (32.0-36.0); Mean Corpuscular Hemoglobin 32.3 pg (27.0-31.0); Platelet Count 207 10x3/uL (130-400); RBC Distribution Width 12.3 % (11.5-14.5); Red Blood Cell (RBC) Count 4.32 mill/uL (4.70-6.10); White Blood Cell (WBC) Count 27.2 10x3/uL (4.8-10.8)
[2022-07-30 10:27] LABS: Anion Gap 12 mmol/L (10-20); BUN (Urea Nitrogen) 39 mg/dL (8.4-25.7); Calc. Creatinine Clearance 50 mL/min (70-130); Calcium 9.2 mg/dL (7.8-10.44); Carbon Dioxide 31 mmol/L (23-31); Chloride 106 mmol/L (98-107); Estimated GFR 77; Glucose 259 mg/dL (83-110); Sodium 145 mmol/L (136-145)
[2022-07-30 10:44] LABS: Band 18 % (5-11); Lymphocytes 4 % (21-51); MDiff Complete? YES; Monocytes 6 % (0-10); Neutrophil 72 % (42-75); RBC Morphology Normal
[2022-07-30] MEDS: HumaLOG 300 UNITS/3 ML VIAL SC PRN ×2 (12:40→18:15)
[2022-07-30] MEDS: Cefepime 2 GM in Sodium Chloride 0.9% 100 ML IVPB SCH (15:13)
[2022-07-30] MEDS: Vancomycin 1 GM in Premix Bag 1 BAG IVPB SCH (16:29)
[2022-07-30] MEDS: VYZULTA 0.024% EA EYE SCH (21:46)
[2022-07-31] MEDS: Cefepime 2 GM in Sodium Chloride 0.9% 100 ML IVPB SCH ×2 (02:01→14:56)
[2022-07-31] MEDS: HumaLOG 300 UNITS/3 ML VIAL SC PRN ×4 (02:02→18:33)
[2022-07-31 06:23] LABS: #Lymphocytes 1.9 thou/uL (1.20-3.40); #Monocytes 0.9 thou/uL (0.11-0.59); #Neutrophils 15.2 thou/uL (1.40-6.50); %Eosinophils 0.1 % (0.0-10.0); %Lymphocytes 10.3 % (21.0-51.0); %Neutrophils 84.6 % (42.0-75.0); Hemoglobin 13.3 g/dL (14.0-18.0); Mean Corpuscular HGB CONC 32.9 g/dL (32.0-36.0); Mean Platelet Volume 8.2 fL (7.4-10.4); Platelet Count 198 10x3/uL (130-400); RBC Distribution Width 12.3 % (11.5-14.5); Red Blood Cell (RBC) Count 4.02 mill/uL (4.70-6.10)
[2022-07-31 06:43] LABS: Anion Gap 10 mmol/L (10-20); BUN (Urea Nitrogen) 36 mg/dL (8.4-25.7); Calc. Creatinine Clearance 56 mL/min (70-130); Calcium 9.2 mg/dL (7.8-10.44); Carbon Dioxide 32 mmol/L (23-31); Chloride 108 mmol/L (98-107); Estimated GFR 84; Glucose 252 mg/dL (83-110); Potassium 3.8 mmol/L (3.5-5.1); Sodium 146 mmol/L (136-145)
[2022-07-31] MEDS: Amlodipine 10 MG TAB PER TUBE SCH (09:02)
[2022-07-31] MEDS: Atorvastatin Calcium 40 MG TAB PO SCH (09:02)
[2022-07-31] MEDS: Zinc Sulfate 220 MG CAP PO SCH (09:02)
[2022-07-31] MEDS: Lisinopril 20 MG TAB PO SCH ×2 (09:02→20:51)
[2022-07-31] MEDS: Metoprolol Tartrate 50 MG TAB PO SCH ×2 (09:02→20:51)
[2022-07-31] MEDS: Lansoprazole 15 MG/5 ML (BATCHED)UDCUP PER TUBE SCH (09:03)
[2022-07-31] MEDS: Insulin Glargine 30 UNITS/0.3 ML VIAL SC SCH (09:03)
[2022-07-31] MEDS: Polyethylene Glycol 3350 17 GM Packet PO SCH (09:03)
[2022-07-31] MEDS ORDERED: Lactated Ringer's 1,000 ML IV SCH (10:30)
[2022-07-31] MEDS: Acetaminophen 325 MG TAB PO PRN ×2 (12:25→21:41)
[2022-07-31] MEDS: Vancomycin 1 GM in Premix Bag 1 BAG IVPB SCH (16:13)
[2022-07-31] MEDS: VYZULTA 0.024% EA EYE SCH (20:51)
[2022-07-31] MEDS: Ondansetron PF 4 MG/2 ML Vial IVP PRN (20:51)
[2022-08-01] MEDS ORDERED: Acetaminophen 650 MG Suppository PR SCH (03:15)
[2022-08-01 03:25] LABS: Actual Bicarbonate (HCO3a) 32.5 mEq/L (22-28); Base Excess (BEa) 7.6 mEq/L (-2.0 to +3.0); CO2 Tension 46.2 mmHg (35.0-45.0); Calcium, Ionized (arterial) 1.18 mmol/L (1.12-1.30); Carboxyhemoglobin (COHb) 0.5 gm% (0.0-3.0); Hemoglobin (Hb) 14.6 g/dL (14.0-18.0); pH, Arterial 7.47 (7.35-7.45)
[2022-08-01 03:27] LABS: O2 Tension (PaO2), arterial 48.9 mmHg (> 60.0)
[2022-08-01 03:28] LABS: Puncture Site RRA
[2022-08-01 03:51] LABS: Hemoglobin 14.4 g/dL (14.0-18.0); Mean Corpuscular HGB CONC 33.2 g/dL (32.0-36.0); Mean Corpuscular Hemoglobin 33.7 pg (27.0-31.0); Mean Platelet Volume 8.4 fL (7.4-10.4); Platelet Count 251 10x3/uL (130-400); RBC Distribution Width 12.4 % (11.5-14.5); Red Blood Cell (RBC) Count 4.25 mill/uL (4.70-6.10); White Blood Cell (WBC) Count 15.4 10x3/uL (4.8-10.8)
[2022-08-01] MEDS ORDERED: Piperacillin/Tazobactam 3.375 GM in Sodium Chloride 0.9% 100 ML IVPB SCH (04:00)
[2022-08-01 04:06] LABS: Lactic Acid 2.8 mmol/L (0.5-2.2)
[2022-08-01 04:11] LABS: ALT (SGPT) 122 U/L (8-55); AST (SGOT) 102 U/L (5-34); Albumin 2.8 g/dL (3.4-4.8); Alkaline Phosphatase 111 U/L (40-110); Anion Gap 16 mmol/L (10-20); BUN (Urea Nitrogen) 35 mg/dL (8.4-25.7); Bilirubin, Total 0.8 mg/dL (0.2-1.2); Calc. Creatinine Clearance 49 mL/min (70-130); Calcium 9.4 mg/dL (7.8-10.44); Carbon Dioxide 32 mmol/L (23-31); Chloride 104 mmol/L (98-107); Estimated GFR 77; Globulin 3.4 g/dL (2.4-3.5); Glucose 236 mg/dL (83-110); Potassium 3.9 mmol/L (3.5-5.1); Protein, Total 6.2 g/dL (5.8-8.1); Sodium 148 mmol/L (136-145)
[2022-08-01 04:12] LABS: Band 8 % (5-11); Lymphocytes 18 % (21-51); MDiff Complete? YES; Macrocytosis SLIGHT = 6-15 cells (100X) (0-5/hpf); Monocytes 5 % (0-10); Neutrophil 69 % (42-75); Platelet Morphology Comment Appears Adequate; Polychromasia SLIGHT = 2-3 cells (100X) (0-2/hpf)
[2022-08-01] MEDS ORDERED: PROPOFOL 200 MG/20 ML VIAL ONE (04:14)
[2022-08-01] MEDS ORDERED: Rocuronium Bromide 10 MG/ML (10ML VIAL) ONE (04:14)
[2022-08-01] MEDS ORDERED: Ventilator Sedation Protocol 1 EACH FS SCH (04:30)
[2022-08-01] MEDS ORDERED: Propofol BOLUS 1,000 MG/100 ML VIAL IV PRN (04:45)
[2022-08-01] MEDS ORDERED: DISCONTINUE PREVIOUS NARCOTIC PAIN MEDICATIONS AND BENZODIAZEPINES FS SCH (04:45)
[2022-08-01] MEDS ORDERED: Fentanyl BOLUS 250 ML IVPB PRN (04:45)
[2022-08-01] MEDS ORDERED: Fentanyl CADD 100 ML IV SCH (04:45)
[2022-08-01 05:07] LABS: Actual Bicarbonate (HCO3a) 33.5 mEq/L (22-28); Base Excess (BEa) 9.4 mEq/L (-2.0 to +3.0); CO2 Tension 43.3 mmHg (35.0-45.0); Calcium, Ionized (arterial) 1.16 mmol/L (1.12-1.30); Carboxyhemoglobin (COHb) 0.3 gm% (0.0-3.0); Hemoglobin (Hb) 13.2 g/dL (14.0-18.0); O2 Tension (PaO2), arterial 68.4 mmHg (> 60.0); Potassium - ABG Lab 3.81 mmol/L (3.70-5.30); pH, Arterial 7.51 (7.35-7.45)
[2022-08-01 05:08] LABS: Puncture Site RRA
[2022-08-01 05:09] LABS: ALV-art Gradient 305.275 mmHg (0-20)
[2022-08-01] MEDS ORDERED: Piperacillin/Tazobactam 4.5 GM in Sodium Chloride 0.9% 100 ML IVPB SCH (06:00)
[2022-08-01] MEDS: Lactated Ringer's 1,000 ML IV SCH ×2 (07:38→15:14)
[2022-08-01] MEDS: Cefepime 2 GM in Sodium Chloride 0.9% 100 ML IVPB SCH (07:40)
[2022-08-01 07:56] LABS: Actual Bicarbonate (HCO3a) 31.8 mEq/L (22-28); Base Excess (BEa) 6.9 mEq/L (-2.0 to +3.0); CO2 Tension 45.4 mmHg (35.0-45.0); Calcium, Ionized (arterial) 1.19 mmol/L (1.12-1.30); Carboxyhemoglobin (COHb) 0.6 gm% (0.0-3.0); Hemoglobin (Hb) 16.8 g/dL (14.0-18.0); O2 Tension (PaO2), arterial 62.2 mmHg (> 60.0); Potassium - ABG Lab 3.82 mmol/L (3.70-5.30); pH, Arterial 7.46 (7.35-7.45)
[2022-08-01 07:57] LABS: Puncture Site RBA
[2022-08-01] MEDS: Ipratropium/Albuterol 3 ML NEB NEB SCH ×5 (08:01→21:59)
[2022-08-01] MEDS ORDERED: Famotidine/PF 20 mg/2ml Vial SLOW IVP SCH (09:00)
[2022-08-01] MEDS: Piperacillin/Tazobactam 3.375 GM in Sodium Chloride 0.9% 100 ML IVPB SCH ×2 (09:37→17:20)
[2022-08-01] MEDS: Lisinopril 20 MG TAB PO SCH (09:38)
[2022-08-01] MEDS: Metoprolol Tartrate 50 MG TAB PO SCH ×2 (09:38→21:42)
[2022-08-01] MEDS: Lansoprazole 15 MG/5 ML (BATCHED)UDCUP PER TUBE SCH (09:39)
[2022-08-01] MEDS: Acetaminophen 325 MG TAB PO PRN ×3 (09:39→22:31)
[2022-08-01] MEDS: Zinc Sulfate 220 MG CAP PO SCH (09:39)
[2022-08-01] MEDS: Scopolamine 1.5 mg/72 hour Patch TD SCH (09:40)
[2022-08-01] MEDS: Atorvastatin Calcium 40 MG TAB PO SCH (09:40)
[2022-08-01] MEDS: Insulin Glargine 30 UNITS/0.3 ML VIAL SC SCH (09:41)
[2022-08-01] MEDS: Polyethylene Glycol 3350 17 GM Packet PO SCH (09:41)
[2022-08-01 10:40] LABS: Lactic Acid 3.5 mmol/L (0.5-2.2)
[2022-08-01] MEDS ORDERED: Lactated Ringer's 500 ML IV SCH ×2 (10:45→11:00)
[2022-08-01] MEDS ORDERED: NOREPINEPHRINE 8 MG/250 ML-D5W 250 ML ONE (10:58)
[2022-08-01] MEDS ORDERED: NOREPINEPHRINE 8 MG/250 ML-D5W 250 ML IVPB SCH (11:00)
[2022-08-01] MEDS ORDERED: Lactated Ringer's 1,000 ML IV SCH (11:15)
[2022-08-01 15:18] LABS: Vancomycin, Trough 6.8 ug/mL
[2022-08-01] MEDS: VANCOMYCIN 1.25 GM/250 ML BAG 1.25 GM in Premix Bag 1 BAG IVPB SCH (16:10)
[2022-08-01] MEDS: VYZULTA 0.024% EA EYE SCH (21:43)
[2022-08-02] MEDS: Piperacillin/Tazobactam 3.375 GM in Sodium Chloride 0.9% 100 ML IVPB SCH ×3 (00:44→17:19)
[2022-08-02] MEDS: Lactated Ringer's 1,000 ML IV SCH ×3 (00:52→20:15)
[2022-08-02] MEDS: Ipratropium/Albuterol 3 ML NEB NEB SCH ×6 (02:43→21:45)
[2022-08-02 04:43] LABS: Anion Gap 12 mmol/L (10-20); BUN (Urea Nitrogen) 35 mg/dL (8.4-25.7); Calc. Creatinine Clearance 36 mL/min (70-130); Calcium 8.6 mg/dL (7.8-10.44); Carbon Dioxide 30 mmol/L (23-31); Chloride 108 mmol/L (98-107); Estimated GFR 62; Glucose 235 mg/dL (83-110); Potassium 3.7 mmol/L (3.5-5.1); Sodium 146 mmol/L (136-145)
[2022-08-02 05:44] LABS: Band 12 % (5-11); Hemoglobin 10.9 g/dL (14.0-18.0); Lymphocytes 10 % (21-51); MDiff Complete? YES; Mean Corpuscular HGB CONC 33.6 g/dL (32.0-36.0); Mean Corpuscular Hemoglobin 33.6 pg (27.0-31.0); Mean Platelet Volume 8.5 fL (7.4-10.4); Monocytes 3 % (0-10); Neutrophil 74 % (42-75); Platelet Count 185 10x3/uL (130-400); RBC Distribution Width 12.1 % (11.5-14.5); Reactive Lymphocytes 1 % (0-10); Red Blood Cell (RBC) Count 3.24 mill/uL (4.70-6.10); White Blood Cell (WBC) Count 8.2 10x3/uL (4.8-10.8)
[2022-08-02] MEDS: Polyethylene Glycol 3350 17 GM Packet PO SCH (09:01)
[2022-08-02] MEDS: Insulin Glargine 30 UNITS/0.3 ML VIAL SC SCH (09:02)
[2022-08-02] MEDS: Lansoprazole 15 MG/5 ML (BATCHED)UDCUP PER TUBE SCH (09:02)
[2022-08-02] MEDS: Acetaminophen 325 MG TAB PO PRN ×2 (09:03→20:26)
[2022-08-02] MEDS: Metoprolol Tartrate 50 MG TAB PO SCH ×2 (09:03→21:22)
[2022-08-02] MEDS: Zinc Sulfate 220 MG CAP PO SCH (09:04)
[2022-08-02] MEDS: Atorvastatin Calcium 40 MG TAB PO SCH (09:04)
[2022-08-02] MEDS: Lorazepam 2 MG/ML VIAL SLOW IVP PRN (10:27)
[2022-08-02] MEDS: HumaLOG 300 UNITS/3 ML VIAL SC PRN ×3 (12:03→22:10)
[2022-08-02] MEDS: VANCOMYCIN 1.25 GM/250 ML BAG 1.25 GM in Premix Bag 1 BAG IVPB SCH (16:48)
[2022-08-02] MEDS: VYZULTA 0.024% EA EYE SCH (20:15)
[2022-08-03] MEDS: Piperacillin/Tazobactam 3.375 GM in Sodium Chloride 0.9% 100 ML IVPB SCH ×3 (01:37→16:46)
[2022-08-03] MEDS: Ipratropium/Albuterol 3 ML NEB NEB SCH ×6 (02:16→21:59)
[2022-08-03] MEDS: Lorazepam 2 MG/ML VIAL SLOW IVP PRN ×3 (02:31→19:54)
[2022-08-03] MEDS: Acetaminophen 325 MG TAB PO PRN ×2 (04:23→19:55)
[2022-08-03] MEDS: HumaLOG 300 UNITS/3 ML VIAL SC PRN ×3 (04:35→16:28)
[2022-08-03 05:20] LABS: #Lymphocytes 0.9 thou/uL (1.20-3.40); #Monocytes 0.5 thou/uL (0.11-0.59); #Neutrophils 7.7 thou/uL (1.40-6.50); %Basophils 0.3 % (0.0-1.0); %Eosinophils 0.4 % (0.0-10.0); %Lymphocytes 9.9 % (21.0-51.0); %Monocytes 5.6 % (0.0-10.0); %Neutrophils 83.8 % (42.0-75.0); Hemoglobin 10.5 g/dL (14.0-18.0); Mean Corpuscular HGB CONC 32.6 g/dL (32.0-36.0); Mean Corpuscular Hemoglobin 32.8 pg (27.0-31.0); Mean Platelet Volume 8.3 fL (7.4-10.4); Platelet Count 201 10x3/uL (130-400); RBC Distribution Width 12.3 % (11.5-14.5); Red Blood Cell (RBC) Count 3.21 mill/uL (4.70-6.10); White Blood Cell (WBC) Count 9.2 10x3/uL (4.8-10.8)
[2022-08-03 05:40] LABS: Anion Gap 11 mmol/L (10-20); BUN (Urea Nitrogen) 34 mg/dL (8.4-25.7); Calc. Creatinine Clearance 37 mL/min (70-130); Calcium 8.4 mg/dL (7.8-10.44); Carbon Dioxide 30 mmol/L (23-31); Chloride 110 mmol/L (98-107); Estimated GFR 58; Glucose 218 mg/dL (83-110); Potassium 3.1 mmol/L (3.5-5.1); Sodium 148 mmol/L (136-145)
[2022-08-03] MEDS: Lactated Ringer's 1,000 ML IV SCH (06:22)
[2022-08-03] MEDS ORDERED: Electrolyte Replacement Protocol FS PRN (07:30)
[2022-08-03] MEDS: Potassium Chloride 20 MEQ in Premix Bag 1 BAG IVPB SCH ×3 (08:02→22:30)
[2022-08-03] MEDS: Lansoprazole 15 MG/5 ML (BATCHED)UDCUP PER TUBE SCH (09:39)
[2022-08-03] MEDS: Zinc Sulfate 220 MG CAP PO SCH (09:39)
[2022-08-03] MEDS: Atorvastatin Calcium 40 MG TAB PO SCH (09:39)
[2022-08-03] MEDS: Insulin Glargine 30 UNITS/0.3 ML VIAL SC SCH (09:39)
[2022-08-03] MEDS: Polyethylene Glycol 3350 17 GM Packet PO SCH (09:50)
[2022-08-03] MEDS ORDERED: Furosemide 20 MG in Sodium Chloride 0.9% 90 ML IVPB SCH (13:15)
[2022-08-03] MEDS: Morphine 2 MG/ML VIAL SLOW IVP PRN ×2 (13:25→23:17)
[2022-08-03] MEDS ORDERED: Furosemide 20 MG/2 ML VIAL SLOW IVP SCH (14:15)
[2022-08-03 15:46] LABS: Potassium 3.3 mmol/L (3.5-5.1)
[2022-08-03 15:54] LABS: Vancomycin, Trough 17.1 ug/mL
[2022-08-03] MEDS ORDERED: VANCOMYCIN 1.25 GM/250 ML BAG 1.25 GM in Premix Bag 1 BAG IVPB SCH (16:00)
[2022-08-03] MEDS: VYZULTA 0.024% EA EYE SCH (22:32)
[2022-08-04] MEDS: Piperacillin/Tazobactam 3.375 GM in Sodium Chloride 0.9% 100 ML IVPB SCH ×3 (00:32→17:57)
[2022-08-04] MEDS: Potassium Chloride 20 MEQ in Premix Bag 1 BAG IVPB SCH (00:33)
[2022-08-04] MEDS: Propofol 1,000 MG/100 ML VIAL IV PRN ×2 (00:43→14:36)
[2022-08-04] MEDS: Ipratropium/Albuterol 3 ML NEB NEB SCH ×6 (02:45→22:03)
[2022-08-04 04:17] LABS: #Eosinphils 0.1 thou/uL (0.0-0.7); #Lymphocytes 1.2 thou/uL (1.20-3.40); #Monocytes 0.5 thou/uL (0.11-0.59); #Neutrophils 6.3 thou/uL (1.40-6.50); %Basophils 0.3 % (0.0-1.0); %Eosinophils 1.6 % (0.0-10.0); %Lymphocytes 14.7 % (21.0-51.0); %Monocytes 6.6 % (0.0-10.0); %Neutrophils 76.8 % (42.0-75.0); Hemoglobin 10.4 g/dL (14.0-18.0); Mean Corpuscular HGB CONC 32.8 g/dL (32.0-36.0); Mean Corpuscular Hemoglobin 32.8 pg (27.0-31.0); Mean Platelet Volume 8.4 fL (7.4-10.4); Platelet Count 214 10x3/uL (130-400); RBC Distribution Width 12.2 % (11.5-14.5); Red Blood Cell (RBC) Count 3.18 mill/uL (4.70-6.10); White Blood Cell (WBC) Count 8.1 10x3/uL (4.8-10.8)
[2022-08-04 04:36] LABS: Anion Gap 10 mmol/L (10-20); BUN (Urea Nitrogen) 32 mg/dL (8.4-25.7); Calc. Creatinine Clearance 42 mL/min (70-130); Calcium 8.3 mg/dL (7.8-10.44); Carbon Dioxide 32 mmol/L (23-31); Chloride 111 mmol/L (98-107); Estimated GFR 61; Glucose 219 mg/dL (83-110); Potassium 4.6 mmol/L (3.5-5.1); Sodium 148 mmol/L (136-145)
[2022-08-04] MEDS: HumaLOG 300 UNITS/3 ML VIAL SC PRN (04:42)
[2022-08-04 07:27] LABS: Actual Bicarbonate (HCO3a) 31.3 mEq/L (22-28); Base Excess (BEa) 7.8 mEq/L (-2.0 to +3.0); Calcium, Ionized (arterial) 1.14 mmol/L (1.12-1.30); Carboxyhemoglobin (COHb) 0.3 gm% (0.0-3.0); Hemoglobin (Hb) 10.5 g/dL (14.0-18.0); O2 Tension (PaO2), arterial 78.5 mmHg (> 60.0); Potassium - ABG Lab 3.64 mmol/L (3.70-5.30); pH, Arterial 7.51 (7.35-7.45)
[2022-08-04 07:38] LABS: Puncture Site RRA
[2022-08-04] MEDS ORDERED: Furosemide 40 MG/4 ML VIAL IVP SCH (08:00)
[2022-08-04] MEDS: Insulin Glargine 30 UNITS/0.3 ML VIAL SC SCH (10:03)
[2022-08-04] MEDS: Atorvastatin Calcium 40 MG TAB PO SCH (10:03)
[2022-08-04] MEDS: Zinc Sulfate 220 MG CAP PO SCH (10:03)
[2022-08-04] MEDS: Polyethylene Glycol 3350 17 GM Packet PO SCH (10:03)
[2022-08-04] MEDS: Lansoprazole 15 MG/5 ML (BATCHED)UDCUP PER TUBE SCH (10:07)
[2022-08-04] MEDS ORDERED: Albuterol 2.5 MG/0.5 ML NEB ONE (18:11)
[2022-08-04] MEDS: VYZULTA 0.024% EA EYE SCH (22:00)
[2022-08-05] MEDS: Piperacillin/Tazobactam 3.375 GM in Sodium Chloride 0.9% 100 ML IVPB SCH ×3 (00:05→16:44)
[2022-08-05] MEDS: HumaLOG 300 UNITS/3 ML VIAL SC PRN ×3 (00:09→12:17)
[2022-08-05] MEDS ORDERED: Albuterol 2.5 MG/0.5 ML NEB ONE (01:42)
[2022-08-05] MEDS: Ipratropium/Albuterol 3 ML NEB NEB SCH ×6 (02:05→21:56)
[2022-08-05] MEDS: Lorazepam 2 MG/ML VIAL SLOW IVP PRN (04:25)
[2022-08-05] MEDS: Propofol 1,000 MG/100 ML VIAL IV PRN (04:25)
[2022-08-05 05:17] LABS: #Eosinphils 0.2 thou/uL (0.0-0.7); #Lymphocytes 0.9 thou/uL (1.20-3.40); #Monocytes 0.5 thou/uL (0.11-0.59); #Neutrophils 7.2 thou/uL (1.40-6.50); %Basophils 0.5 % (0.0-1.0); %Eosinophils 1.8 % (0.0-10.0); %Lymphocytes 10.3 % (21.0-51.0); %Monocytes 5.6 % (0.0-10.0); %Neutrophils 81.7 % (42.0-75.0); Hemoglobin 9.6 g/dL (14.0-18.0); Mean Corpuscular HGB CONC 32.1 g/dL (32.0-36.0); Mean Corpuscular Hemoglobin 32.3 pg (27.0-31.0); Mean Platelet Volume 8.2 fL (7.4-10.4); Platelet Count 239 10x3/uL (130-400); RBC Distribution Width 12.2 % (11.5-14.5); Red Blood Cell (RBC) Count 2.98 mill/uL (4.70-6.10); White Blood Cell (WBC) Count 8.8 10x3/uL (4.8-10.8)
[2022-08-05 05:36] LABS: Anion Gap 10 mmol/L (10-20); BUN (Urea Nitrogen) 33 mg/dL (8.4-25.7); Calc. Creatinine Clearance 43 mL/min (70-130); Calcium 8.3 mg/dL (7.8-10.44); Carbon Dioxide 33 mmol/L (23-31); Chloride 109 mmol/L (98-107); Estimated GFR 62; Glucose 201 mg/dL (83-110); Potassium 3.6 mmol/L (3.5-5.1); Sodium 148 mmol/L (136-145)
[2022-08-05 07:53] LABS: Actual Bicarbonate (HCO3a) 32.4 mEq/L (22-28); Base Excess (BEa) 8.6 mEq/L (-2.0 to +3.0); CO2 Tension 41.7 mmHg (35.0-45.0); Calcium, Ionized (arterial) 1.15 mmol/L (1.12-1.30); Carboxyhemoglobin (COHb) 0.3 gm% (0.0-3.0); Hemoglobin (Hb) 10.8 g/dL (14.0-18.0); O2 Tension (PaO2), arterial 76.8 mmHg (> 60.0); Potassium - ABG Lab 3.75 mmol/L (3.70-5.30); pH, Arterial 7.51 (7.35-7.45)
[2022-08-05 08:11] LABS: ALV-art Gradient 156.275 mmHg (0-20); Puncture Site RRA
[2022-08-05] MEDS: Atorvastatin Calcium 40 MG TAB PO SCH (10:18)
[2022-08-05] MEDS: Zinc Sulfate 220 MG CAP PO SCH (10:18)
[2022-08-05] MEDS: Lansoprazole 15 MG/5 ML (BATCHED)UDCUP PER TUBE SCH (10:18)
[2022-08-05] MEDS: Polyethylene Glycol 3350 17 GM Packet PO SCH (10:19)
[2022-08-05] MEDS: Insulin Glargine 30 UNITS/0.3 ML VIAL SC SCH (10:19)
[2022-08-05] MEDS: Acetaminophen 325 MG TAB PO PRN (16:43)
[2022-08-05] MEDS: VYZULTA 0.024% EA EYE SCH (21:20)
[2022-08-06] MEDS: Ipratropium/Albuterol 3 ML NEB NEB SCH ×6 (02:13→23:21)
[2022-08-06] MEDS: HumaLOG 300 UNITS/3 ML VIAL SC PRN ×2 (04:38→10:16)
[2022-08-06 04:43] LABS: #Eosinphils 0.1 thou/uL (0.0-0.7); #Lymphocytes 0.9 thou/uL (1.20-3.40); #Monocytes 0.5 thou/uL (0.11-0.59); #Neutrophils 6.6 thou/uL (1.40-6.50); %Basophils 0.1 % (0.0-1.0); %Eosinophils 1.6 % (0.0-10.0); %Lymphocytes 10.6 % (21.0-51.0); %Monocytes 6.5 % (0.0-10.0); %Neutrophils 81.3 % (42.0-75.0); Hemoglobin 10.1 g/dL (14.0-18.0); Mean Corpuscular Hemoglobin 32.3 pg (27.0-31.0); Mean Platelet Volume 7.9 fL (7.4-10.4); Platelet Count 217 10x3/uL (130-400); RBC Distribution Width 12.2 % (11.5-14.5); Red Blood Cell (RBC) Count 3.13 mill/uL (4.70-6.10); White Blood Cell (WBC) Count 8.1 10x3/uL (4.8-10.8)
[2022-08-06 05:02] LABS: Anion Gap 9 mmol/L (10-20); BUN (Urea Nitrogen) 35 mg/dL (8.4-25.7); Calc. Creatinine Clearance 38 mL/min (70-130); Calcium 8.1 mg/dL (7.8-10.44); Carbon Dioxide 32 mmol/L (23-31); Chloride 110 mmol/L (98-107); Estimated GFR 55; Glucose 230 mg/dL (83-110); Sodium 147 mmol/L (136-145)
[2022-08-06] MEDS: Atorvastatin Calcium 40 MG TAB PO SCH (09:18)
[2022-08-06] MEDS: Polyethylene Glycol 3350 17 GM Packet PO SCH (09:18)
[2022-08-06] MEDS: Insulin Glargine 30 UNITS/0.3 ML VIAL SC SCH (09:18)
[2022-08-06] MEDS: Zinc Sulfate 220 MG CAP PO SCH (09:18)
[2022-08-06] MEDS: Lansoprazole 15 MG/5 ML (BATCHED)UDCUP PER TUBE SCH (09:18)
[2022-08-06] MEDS: Ondansetron PF 4 MG/2 ML Vial IVP PRN (10:16)
[2022-08-06] MEDS: Metoclopramide HCl 10 MG/2 ML VIAL IVP SCH ×2 (13:13→21:15)
[2022-08-06] MEDS: Cefepime 2 GM in Sodium Chloride 0.9% 100 ML IVPB SCH (13:14)
[2022-08-06] MEDS: Scopolamine 1.5 mg/72 hour Patch TD SCH (13:14)
[2022-08-06] MEDS: VYZULTA 0.024% EA EYE SCH (21:15)
[2022-08-06] MEDS ORDERED: Furosemide 40 MG/4 ML VIAL IVP SCH (21:45)
[2022-08-07] MEDS: Cefepime 2 GM in Sodium Chloride 0.9% 100 ML IVPB SCH ×2 (00:23→12:28)
[2022-08-07] MEDS: Ipratropium/Albuterol 3 ML NEB NEB SCH ×6 (02:54→22:45)
[2022-08-07 04:43] LABS: #Eosinphils 0.1 thou/uL (0.0-0.7); #Lymphocytes 1.1 thou/uL (1.20-3.40); #Monocytes 0.7 thou/uL (0.11-0.59); #Neutrophils 8.9 thou/uL (1.40-6.50); %Basophils 0.1 % (0.0-1.0); %Eosinophils 1.3 % (0.0-10.0); %Lymphocytes 9.9 % (21.0-51.0); %Monocytes 6.1 % (0.0-10.0); %Neutrophils 82.7 % (42.0-75.0); Hemoglobin 10.5 g/dL (14.0-18.0); Mean Corpuscular HGB CONC 32.4 g/dL (32.0-36.0); Mean Corpuscular Hemoglobin 32.6 pg (27.0-31.0); Platelet Count 255 10x3/uL (130-400); Red Blood Cell (RBC) Count 3.23 mill/uL (4.70-6.10); White Blood Cell (WBC) Count 10.8 10x3/uL (4.8-10.8)
[2022-08-07 05:09] LABS: Anion Gap 13 mmol/L (10-20); BUN (Urea Nitrogen) 42 mg/dL (8.4-25.7); Calc. Creatinine Clearance 41 mL/min (70-130); Calcium 8.6 mg/dL (7.8-10.44); Carbon Dioxide 34 mmol/L (23-31); Chloride 109 mmol/L (98-107); Estimated GFR 59; Glucose 132 mg/dL (83-110); Potassium 3.8 mmol/L (3.5-5.1)
[2022-08-07 05:18] LABS: Sodium 152 mmol/L (136-145)
[2022-08-07] MEDS: Metoclopramide HCl 10 MG/2 ML VIAL IVP SCH ×3 (05:53→21:11)
[2022-08-07] MEDS: Propofol 1,000 MG/100 ML VIAL IV PRN (05:54)
[2022-08-07] MEDS: Atorvastatin Calcium 40 MG TAB PO SCH (08:59)
[2022-08-07] MEDS: Lansoprazole 15 MG/5 ML (BATCHED)UDCUP PER TUBE SCH (08:59)
[2022-08-07] MEDS: Zinc Sulfate 220 MG CAP PO SCH (08:59)
[2022-08-07] MEDS: Polyethylene Glycol 3350 17 GM Packet PO SCH (09:00)
[2022-08-07 11:18] VITALS: BMI 21.4
[2022-08-07] MEDS: Insulin Glargine 30 UNITS/0.3 ML VIAL SC SCH (12:05)
[2022-08-07] MEDS: HumaLOG 300 UNITS/3 ML VIAL SC PRN (16:11)
[2022-08-07] MEDS: VYZULTA 0.024% EA EYE SCH (21:11)
[2022-08-08] MEDS: Cefepime 2 GM in Sodium Chloride 0.9% 100 ML IVPB SCH ×3 (00:03→23:59)
[2022-08-08] MEDS: Ipratropium/Albuterol 3 ML NEB NEB SCH ×6 (02:38→22:08)
[2022-08-08 03:42] LABS: #Eosinphils 0.1 thou/uL (0.0-0.7); #Lymphocytes 1.5 thou/uL (1.20-3.40); #Monocytes 0.7 thou/uL (0.11-0.59); %Basophils 0.1 % (0.0-1.0); %Eosinophils 0.9 % (0.0-10.0); %Lymphocytes 14.6 % (21.0-51.0); %Monocytes 6.7 % (0.0-10.0); %Neutrophils 77.7 % (42.0-75.0); Hemoglobin 10.3 g/dL (14.0-18.0); Mean Corpuscular HGB CONC 32.8 g/dL (32.0-36.0); Mean Corpuscular Hemoglobin 32.8 pg (27.0-31.0); Mean Corpuscular Volume 99.8 fl (78.0-98.0); Mean Platelet Volume 7.9 fL (7.4-10.4); Platelet Count 249 10x3/uL (130-400); RBC Distribution Width 11.9 % (11.5-14.5); Red Blood Cell (RBC) Count 3.14 mill/uL (4.70-6.10); White Blood Cell (WBC) Count 10.3 10x3/uL (4.8-10.8)
[2022-08-08 04:04] LABS: Anion Gap 10 mmol/L (10-20); BUN (Urea Nitrogen) 45 mg/dL (8.4-25.7); Calc. Creatinine Clearance 39 mL/min (70-130); Calcium 8.8 mg/dL (7.8-10.44); Carbon Dioxide 31 mmol/L (23-31); Chloride 114 mmol/L (98-107); Estimated GFR 56; Glucose 136 mg/dL (83-110); Potassium 3.2 mmol/L (3.5-5.1)
[2022-08-08 04:13] LABS: Sodium 152 mmol/L (136-145)
[2022-08-08] MEDS: Propofol 1,000 MG/100 ML VIAL IV PRN ×2 (05:16→22:00)
[2022-08-08] MEDS: Metoclopramide HCl 10 MG/2 ML VIAL IVP SCH ×3 (05:16→21:10)
[2022-08-08] MEDS ORDERED: Potassium Bicarbonate/Cit Ac 20 MEQ TAB PO SCH (08:00)
[2022-08-08] MEDS: Atorvastatin Calcium 40 MG TAB PO SCH (09:59)
[2022-08-08] MEDS: Polyethylene Glycol 3350 17 GM Packet PO SCH (09:59)
[2022-08-08] MEDS: Zinc Sulfate 220 MG CAP PO SCH (09:59)
[2022-08-08] MEDS: Lansoprazole 15 MG/5 ML (BATCHED)UDCUP PER TUBE SCH (10:00)
[2022-08-08] MEDS: Insulin Glargine 30 UNITS/0.3 ML VIAL SC SCH (10:01)
[2022-08-08] MEDS: VYZULTA 0.024% EA EYE SCH (21:10)
[2022-08-09] MEDS: Ipratropium/Albuterol 3 ML NEB NEB SCH ×4 (02:53→14:15)
[2022-08-09 04:40] LABS: #Basophils 0.1 thou/uL (0.0-0.2); #Eosinphils 0.1 thou/uL (0.0-0.7); #Lymphocytes 1.2 thou/uL (1.20-3.40); #Monocytes 0.7 thou/uL (0.11-0.59); #Neutrophils 8.5 thou/uL (1.40-6.50); %Basophils 0.5 % (0.0-1.0); %Eosinophils 1.2 % (0.0-10.0); %Lymphocytes 11.5 % (21.0-51.0); %Monocytes 6.2 % (0.0-10.0); %Neutrophils 80.6 % (42.0-75.0); Mean Corpuscular HGB CONC 32.7 g/dL (32.0-36.0); Mean Corpuscular Hemoglobin 32.7 pg (27.0-31.0); Mean Platelet Volume 7.8 fL (7.4-10.4); Platelet Count 261 10x3/uL (130-400); RBC Distribution Width 12.1 % (11.5-14.5); Red Blood Cell (RBC) Count 3.07 mill/uL (4.70-6.10); White Blood Cell (WBC) Count 10.5 10x3/uL (4.8-10.8)
[2022-08-09 05:00] LABS: Anion Gap 9 mmol/L (10-20); BUN (Urea Nitrogen) 43 mg/dL (8.4-25.7); Calc. Creatinine Clearance 39 mL/min (70-130); Calcium 8.6 mg/dL (7.8-10.44); Carbon Dioxide 30 mmol/L (23-31); Chloride 116 mmol/L (98-107); Estimated GFR 59; Glucose 158 mg/dL (83-110)
[2022-08-09 05:03] LABS: Sodium 152 mmol/L (136-145)
[2022-08-09] MEDS: Metoclopramide HCl 10 MG/2 ML VIAL IVP SCH ×2 (05:07→14:57)
[2022-08-09] MEDS ORDERED: Potassium Bicarbonate/Cit Ac 20 MEQ TAB PO SCH (08:00)
[2022-08-09] MEDS: Atorvastatin Calcium 40 MG TAB PO SCH (08:15)
[2022-08-09] MEDS: Zinc Sulfate 220 MG CAP PO SCH (08:15)
[2022-08-09] MEDS: Polyethylene Glycol 3350 17 GM Packet PO SCH (08:15)
[2022-08-09] MEDS: Lansoprazole 15 MG/5 ML (BATCHED)UDCUP PER TUBE SCH (08:16)
[2022-08-09] MEDS: Insulin Glargine 30 UNITS/0.3 ML VIAL SC SCH (10:06)
[2022-08-09] MEDS: HumaLOG 300 UNITS/3 ML VIAL SC PRN (10:07)
[2022-08-09 12:31] VITALS: TEMP 99.7
[2022-08-09] MEDS: Cefepime 2 GM in Sodium Chloride 0.9% 100 ML IVPB SCH (12:58)
[2022-08-09 14:21] VITALS: BP 134/76
[2022-08-09] MEDS: Scopolamine 1.5 mg/72 hour Patch TD SCH (14:57)
[2022-08-09] MEDS: Morphine 2 MG/ML VIAL SLOW IVP PRN (15:19)
== END 2022-08-09 15:22 | disposition hospice, inpatient (51) | DRG 64 ==
LOC: ERS 11:23 → ERHOLD 13:42 → CCU 18:17 → NEURO 07-21 17:54 → CCU 08-01 03:58
PROVIDERS: ADMIT Hospitalist; ATTEND Family Medicine
PROC: 0DH63UZ Insertion of Feeding Device into Stomach, Percutaneous Approach (ICD-10-PCS; principal; 2022-07-27)
PROC: 5A1955Z Respiratory Ventilation, Greater than 96 Consecutive Hours (ICD-10-PCS; 2022-08-01)
PROC: 0BH18EZ Insertion of Endotracheal Airway into Trachea, Via Natural or Artificial Opening Endoscopic (ICD-10-PCS; 2022-08-01)
PROC: 4A133R1 Monitoring of Arterial Saturation, Peripheral, Percutaneous Approach (ICD-10-PCS; 2022-08-01)
DX: I61.0 Nontraumatic intracerebral hemorrhage in hemisphere, subcortical (principal); A41.9 Sepsis, unspecified organism; G93.6 Cerebral edema; G93.41 Metabolic encephalopathy; J69.0 Pneumonitis due to inhalation of food and vomit; R65.21 Severe sepsis with septic shock; J80 Acute respiratory distress syndrome; J13 Pneumonia due to Streptococcus pneumoniae; R57.1 Hypovolemic shock; E44.1 Mild protein-calorie malnutrition; G81.94 Hemiplegia, unspecified affecting left nondominant side; N39.0 Urinary tract infection, site not specified; E87.3 Alkalosis; E87.20 Acidosis, unspecified; E87.0 Hyperosmolality and hypernatremia; Z66 Do not resuscitate; Z51.5 Encounter for palliative care; Z20.822 Contact with and (suspected) exposure to COVID-19; E78.5 Hyperlipidemia, unspecified; R47.81 Slurred speech; R29.810 Facial weakness; I48.0 Paroxysmal atrial fibrillation; I11.9 Hypertensive heart disease without heart failure; R29.716 NIHSS score 16; I49.3 Ventricular premature depolarization; E11.59 Type 2 diabetes mellitus with other circulatory complications; G93.89 Other specified disorders of brain; R47.1 Dysarthria and anarthria; R13.12 Dysphagia, oropharyngeal phase; E11.65 Type 2 diabetes mellitus with hyperglycemia; D64.9 Anemia, unspecified; B96.1 Klebsiella pneumoniae [K. pneumoniae] as the cause of diseases classified elsewhere; K29.70 Gastritis, unspecified, without bleeding; E88.09 Other disorders of plasma-protein metabolism, not elsewhere classified; Y95 Nosocomial condition; Z91.041 Radiographic dye allergy status; Z88.2 Allergy status to sulfonamides; Z88.7 Allergy status to serum and vaccine; Z88.8 Allergy status to other drugs, medicaments and biological substances; Z79.899 Other long term (current) drug therapy; Z85.46 Personal history of malignant neoplasm of prostate; Z85.819 Personal history of malignant neoplasm of unspecified site of lip, oral cavity, and pharynx; Z85.820 Personal history of malignant melanoma of skin; Z68.20 Body mass index [BMI] 20.0-20.9, adult; Z87.891 Personal history of nicotine dependence
CPT/HCPCS: 36415; 36416; 36600; 70450; 70551; 71045; 71250; 74018; 80048; 80053; 80061; 80202; 82805; 83036; 83605; 83735; 84145; 84484; 85025; 85610; 85730; 87040; 87070; 87077; 87081; 87086; 87186; 87205; 87804; 87811; 93005; 93010; 93306; 93970; 94002; 94003; 94640; 95712; 95819; 95957; 96374; J0360; J0692; J0696; J1650; J1815; J1940; J2060; J2272; J2405; J2543; J2704; J2765; J3370; J3370-JW; J3475; J3480; J3490; J7120; J7611; J7620; S0028; U0002

== ENCOUNTER 2022-08-09 15:47 | Inpatient (IN) | payer OTHER ==
[2022-08-09] MEDS ORDERED: Scopolamine 1.5 mg/72 hour Patch TOP PRN (16:00)
[2022-08-09] MEDS ORDERED: Lorazepam 2 MG/ML VIAL SLOW IVP PRN (16:01)
[2022-08-09 16:34] VITALS: BMI 18.8
[2022-08-09] MEDS: Morphine 2 MG/ML VIAL SLOW IVP PRN ×4 (16:46→22:00)
[2022-08-09] MEDS: Lorazepam 2 MG/ML VIAL SLOW IVP PRN ×2 (17:01→21:20)
[2022-08-09] MEDS: Morphine 4 MG/ML VIAL SLOW IVP PRN ×2 (17:12→19:36)
[2022-08-10] MEDS: Morphine 4 MG/ML VIAL SLOW IVP PRN ×5 (00:02→21:03)
[2022-08-10] MEDS ORDERED: Acetaminophen 650 MG Suppository PR PRN (10:42)
[2022-08-10] MEDS ORDERED: Lorazepam 2 MG/ML VIAL SLOW IVP PRN (12:14)
[2022-08-10] MEDS: Lorazepam 2 MG/ML VIAL SLOW IVP PRN (21:05)
[2022-08-10] MEDS: VYZULTA 0.024% EA EYE SCH (22:12)
[2022-08-11] MEDS: Morphine 4 MG/ML VIAL SLOW IVP PRN (10:40)
[2022-08-11] MEDS: Lorazepam 2 MG/ML VIAL SLOW IVP PRN (10:41)
[2022-08-11] MEDS: Lorazepam 2 MG/ML VIAL SLOW IVP SCH ×3 (15:29→21:39)
[2022-08-11] MEDS: Morphine 4 MG/ML VIAL SLOW IVP SCH ×3 (15:30→21:39)
[2022-08-11] MEDS: VYZULTA 0.024% EA EYE SCH (21:44)
[2022-08-12] MEDS: Morphine 4 MG/ML VIAL SLOW IVP SCH ×9 (00:02→23:06)
[2022-08-12] MEDS: Lorazepam 2 MG/ML VIAL SLOW IVP SCH ×9 (00:03→23:06)
[2022-08-12] MEDS: Lorazepam 2 MG/ML VIAL SLOW IVP PRN (16:31)
[2022-08-12] MEDS: Morphine 4 MG/ML VIAL SLOW IVP PRN ×2 (16:31→21:16)
[2022-08-12 19:34] VITALS: BP 78/42; TEMP 100.8
[2022-08-12] MEDS: VYZULTA 0.024% EA EYE SCH (19:37)
== END 2022-08-13 00:10 | disposition expired | DRG 951 ==
LOC: CCU 15:47 → MSONC 19:08
PROVIDERS: ADMIT Internal Medicine Nephrology; ATTEND Internal Medicine Nephrology
DX: Z51.5 Encounter for palliative care (principal); J96.01 Acute respiratory failure with hypoxia; I63.9 Cerebral infarction, unspecified; J69.0 Pneumonitis due to inhalation of food and vomit; N39.0 Urinary tract infection, site not specified; I48.91 Unspecified atrial fibrillation; I10 Essential (primary) hypertension; E78.5 Hyperlipidemia, unspecified; I48.0 Paroxysmal atrial fibrillation; Z98.890 Other specified postprocedural states
CPT/HCPCS: J2060; J2270; J2272